=== PATIENT | male | born 1955 | race Caucasian/White ===

== ENCOUNTER 2017-12-01 14:45 | Inpatient (IN) | payer OTHER, MEDICARE ==
[~2017-12-01] VITALS: Ht 182.9 cm; Wt 89.5 kg
--- NOTE | 2017-12-01 14:55 | ED GENERAL ADULT ---
History of Present Illness General Chief Complaint: General Adult Stated Complaint: BIBA L LOWER EXTREMITY EDEMA Source: patient, old records, EMS Exam Limitations: clinical condition Vital Signs & Intake/Output Vital Signs & Intake/Output Vital Signs Date Time Temp Pulse Resp B/P B/P Pulse O2 O2 Flow FiO2 Mean Ox Delivery Rate 12/01 1857 114 18 100/50 12/01 1831 99.3 104 18 100/50 97 Room Air 12/01 1713 100.7 12/01 1713 100.7 12/01 1634 102.7 12/01 1633 102.7 84 18 124/74 97 Room Air 12/01 1456 96 Room Air 12/01 1452 99.1 86 18 143/65 96 Room Air Allergies Coded Allergies: No Known Allergies (12/01/17) Triage Note: PT BIBA FROM [facility] C/C SOB X 1 DAY. POOR HISTORIAN. PT NOTED TO HAVE WOUND VAC TO LLE, STATES HAD BYPASS IN AUGUST. LLE RED, SWOLLEN AND WARM TO TOUCH. ORAL TEMP 99.1. AOX2, PERSON AND LOCATION. DROWSY. Triage Nurses Notes Reviewed? yes Onset: Abrupt Duration: day(s):, constant Timing: recent history Injury Environment: home Severity: moderate, severe Severity Numbers: 9 No Modifying Factors: none Associated Symptoms: DENIES HPI: 61-year-old male with history of COPD smoker CHF recent right lower extremity [facility] presents from a [facility] today complaining of generalized malaise. On arrival the patient is lethargic and is a poor historian. On exam he is noted to have a swollen red and warm right lower extremity. Patient has a wound VAC in place. [facility] which she states the swelling and pain is new. He denies fevers but reports chills. He also reports intermittent shortness of breath no chest pain abdominal pain nausea vomiting diarrhea. He denies any alcohol use. (Brant Singleton) Past History Travel History Traveled to [place] past 21 day No Medical History Any Pertinent Medical History? see below for history Cardiovascular: CHF, hypertension, hyperlipidemia Respiratory: COPD Surgical History Surgical History: RLE BYPASS SEP 12 Psychosocial History What is your primary language Greenlandic Tobacco Use: Quit <30 days ago Family History Hx Contributory? No (Brant Singleton) Review of Systems Review of Systems Constitutional: Reports: see HPI. Comments Review of systems: See HPI, All other systems negative. Constitutional, chills no fever, HEENT: no sore throat no congestion, no ear pain Cardiovascular: No chest pain , no palpitation Skin: SEE HPI Respiratory: dyspnea no cough no sputum no hemoptysis GI: No nausea no vomiting, no diarrhea, no bloating/constipation : No dysuria Muscle skeletal: No joint pain, no back pain Neurologic: , no headache Heme/endocrine: No bruising Immunology: No lymphadenopathy (Brant Singleton) Physical Exam Physical Exam General Appearance: well developed/nourished, lethargic Comments: Well-developed well-nourished person in no acute distress HEENT: Normal EENT exam; PERRL, EOMI, HEAD is atraumatic. moist mucous membranes. Neck: Supple normal range of motion Back: Full range of motion Cardiovascular: Regular rate and rhythms no murmurS rubs or gallops, normal JVP Respiratory: . No respiratory distress. Patient speaking in full complete sentences. Breath sounds clear to auscultation bilaterally: NO W/R/R Abdomen: Soft, nontender nondistended, no appreciable organomegaly. Normal bowel sounds. No rebound/guarding, No ascites. Extremity: Right lower extremity has significant 4+ pitting edema with erythema and significant warmth over the right lower narvaez, there is a wound VAC in place to the medial right thigh, full range of motion of extremities, normal and equal pulses bilaterally, 5 out of 5 strength noted to bilateral upper and lower extremities Neuro: Alert oriented x2, motor sensory normal, There were no obvious focal neurologic abnormalities. Skin: No appreciable rash on exposed skin, skin is warm and dry. Psych: Mood and affect is normal, memory and judgment is normal. Core Measures ACS in differential dx? Yes CVA/TIA Diagnosis: No Sepsis Present: No Sepsis Focused Exam Completed? No (Brant Singleton) Progress Differential Diagnoses I considered the following diagnoses in my evaluation of the patient: [ Cellulitis, sepsis, electrolyte abnormality, CHF, pneumonia, pulmonary embolism Plan of Care: Orders Procedure Date/time Status Heart Healthy Diet 12/02 B Active CBC WITHOUT DIFFERENTIAL 12/02 599 Active BASIC ELECTROLYTES PLUS BUN&CR 12/02 599 Active STREP PNEUMO URINARY ANTIGEN 12/02 1819 Active LEGIONELLA URINARY ANTIGEN 12/02 1819 Active LOWER RESPIRATORY CULTURE 04/08 1820 Active Pathway - chart 12/01 1819 Active Code Status 12/01 1817 Active LACTIC ACID 12/01 1754 Complete Precautions 12/01 1736 Active Patient Data 12/01 1633 Active ED Holding Orders 12/01 1630 Active Admit to inpatient 12/01 1630 Active Vital Signs 12/01 1630 Active Code Status 12/01 1630 Complete Intake & Output 12/01 1458 Active EKG 12/01 1455 Active BLOOD CULTURE 12/01 1454 Active URINE DRUG SCREEN FOR ER ONLY 12/01 1454 Active TROPONIN LEVEL 12/01 1454 Complete LACTIC ACID 12/01 1454 Complete ETHANOL 12/01 1454 Complete WESTERGREN SED RATE 12/01 1454 Complete COMPREHENSIVE METABOLIC PANEL 12/01 1454 Complete CBC WITHOUT DIFFERENTIAL 12/01 1454 Complete B-TYPE NATRIURETIC PEP (BNP) 12/01 1454 Complete ARTERIAL BLOOD GAS (GEN) 12/01 UNK Active Wound Care/Dressing 12/01 UNK Active VTE Mechanical Prophylaxis 12/01 UNK Active Current Medications Sig/Rebel Start time Last Medication Dose Stop Time Status Admin Atorvastatin Calcium 10 MG 1700 12/02 1700 AC (Lipitor) Aspirin 81 MG DAILY 12/02 1000 AC (Aspirin) Citalopram 40 MG DAILY 12/02 1000 AC Hydrobromide (Celexa) Clonazepam 0.5 MG DAILY 12/02 1000 AC (KlonoPIN) 12/09 0959 Ampicillin Sodium/ 3,000 MG Q6H 12/01 2230 AC Sulbactam Sodium (Unasyn) Sodium Chloride 100 ML (Normal Saline 0.9%) Acetaminophen 650 MG AT BEDTIME 12/01 2200 AC (Tylenol) Heparin Sodium 5,000 UNIT Q8 12/01 2200 AC (Porcine) Risperidone 2 MG AT BEDTIME 12/01 2200 AC (Risperidone) Trazodone HCl 100 MG AT BEDTIME 12/01 2200 AC (Desyrel) Senna/Docusate Sodium 2 TAB DAILY PRN 12/01 1845 AC (Senokot S) Metoprolol Tartrate 50 MG DAILY 12/01 183 UNVr 12/01 (Lopressor) 1857 Tamsulosin HCl 0.4 MG DAILY 12/01 1839 AC (Flomax) Nicotine 21 MG DAILY 12/01 183 AC 12/01 (Nicoderm) 1857 Laboratory Tests 12/01/17 1718: Lactic Acid 1.1 12/01/17 1522: Anion Gap 14, Estimated GFR > 60, BUN/Creatinine Ratio 19.0, Glucose 134 H, Lactic Acid 2.4 H, Calcium 8.4, Total Bilirubin 0.6, AST 17, ALT 19 L, Alkaline Phosphatase 70, Troponin I 0.01, Vfb-[id number]-Rcjrssolsgj Pept 4670 H, Total Protein 6.1 L, Albumin 3.3 L, Globulin 2.8, Albumin/Globulin Ratio 1.2, CBC w Diff NO MAN DIFF REQ, RBC 4.43 L, MCV 90.2, MCH 30.0, MCHC 33.3, RDW 14.3, MPV 7.9, Gran % 94.1 H, Lymphocytes % 2.3 L, Monocytes % 3.5, Eosinophils % 0, Basophils % 0.1, Absolute Granulocytes 14.1 H, Absolute Lymphocytes 0.3 L, Absolute Monocytes 0.5, Absolute Eosinophils 0, Absolute Basophils 0, ESR Westergren 23 H, Serum Alcohol < 10.0 Microbiology 12/02 1819 URINE ROUT: Legionella Antigen - ORD 12/02 1819 URINE ROUT: Streptococcus pneumoniae Antigen (M - ORD 12/01 182 LOWER RESP: Respiratory Culture - ORD 12/01 182 LOWER RESP: Gram Stain - ORD 12/01 1528 BLOOD: Blood Culture - RECD 12/01 152 BLOOD: Blood Culture - RECD labs ordered, old records reviewed 12/01/2017 4:13:02 PM Gentle hydration ordered given patient's presentation shortness of breath and mild interstitial edema on x-ray. Unasyn 3 g ordered. I discussed the multiple flaps today pending ultrasound 1600 case d/w dr hinton agrees with plan, d/w dr antwon meraz dmit Diagnostic Imaging: Viewed by Me: Radiology Read, Ultrasound. Discussed w/RAD: Radiology Read, Ultrasound. Radiology Impression: PATIENT: SANDRA IZAGUIRRE PRESENT AGE: 61 PATIENT ACCOUNT NO: [id number] : 56 LOCATION: [facility] ORDERING PHYSICIAN: Brant MIGUEL SERVICE DATE: 12/01/17-1700 EXAM TYPE: RAD - XRY- PORTABLE CHEST XRAY EXAMINATION: XR PORTABLE CHEST CLINICAL INFORMATION: Weakness and leg swelling. Shortness of breath. COMPARISON: None TECHNIQUE: 2 portable frontal views of the chest were obtained. FINDINGS: There is mild prominence of the background interstitium which is nonspecific. There is no dense consolidation or alveolar edema. There is no pneumothorax. The cardiomediastinal silhouette appears normal. There are mild degenerative changes at the right acromioclavicular joint. IMPRESSION: Mild prominence of the background interstitium which could reflect interstitial edema. No dense consolidation. DICTATED BY: Peg Rueda MD DATE/TIME DICTATED:12/01/171555 SULFONATOR OPERATOR:RICH DATE/TIME TRANSCRIBED:12/01/171555 CONFIDENTIAL, DO NOT COPY WITHOUT APPROPRIATE AUTHORIZATION. <Electronically signed in Other Vendor System> SIGNED BY: Peg Rueda MD 12/01/17 1601, PATIENT: SANDRA IZAGUIRRE PRESENT AGE: 61 PATIENT ACCOUNT NO: [id number] : 56 LOCATION: [facility] ORDERING PHYSICIAN: Brant MIGUEL SERVICE DATE: 12/01/17 EXAM TYPE: US - US-UNILATERAL VENOUS DOPPLER EXAMINATION: DOPPLER VENOUS ULTRASOUND EXTREMITY, LEFT CLINICAL INFORMATION: Left lower extremity swelling and redness. COMPARISON: None. TECHNIQUE: Grayscale, Doppler and spectral analysis of the lower extremity was performed. FINDINGS: There is no evidence for a deep venous thrombosis within the visualized lower extremity veins. There is normal flow and compression. The popliteal vein was difficult to visualize due to a wound VAC which is attached to the medial aspect of the left knee. No Puri's cyst is identified. IMPRESSION : No evidence of DVT in the left lower extremity. DICTATED BY: Peg Rueda MD DATE/TIME DICTATED:12/01/171607 SULFONATOR OPERATOR:RICH DATE/TIME TRANSCRIBED:12/01/171607 CONFIDENTIAL, DO NOT COPY WITHOUT APPROPRIATE AUTHORIZATION. <Electronically signed in Other Vendor System> SIGNED BY: Peg Rueda MD 12/01/17 1614 Initial ED EKG: normal intervals, normal p-waves, normal QRS complex, normal sinus rhythm Rhythm Strip: normal sinus rhythm (Brant Singleton) ED Sepsis Exam Date of Focused Sepsis Exam: 12/01/17 Time of Focused Sepsis Exam: 1630 Sepsis Cardiac Exam: Regular Rate/Rhythm Sepsis Resp Exam: CTA Sepsis Cap Refill Exam: <2 Sec Sepsis Peripheral Pulse Exam: Normal Sepsis Peripheral Pulse Location: Dorsalis Pedis Sepsis Skin Color Exam: Normal for Ethnicity Skin Temp/Moisture Exam: Warm/Dry (Brant Singleton) Departure Departure Time of Disposition: 1628 Disposition: STILL A PATIENT Condition: Stable Clinical Impression Primary Impression: Cellulitis Departure Forms: Customer Survey General Discharge Information Admission Note Spoke With: Antwon PECK,Shravan Documentation of Exam: Documentation of any treatments & extenuating circumstances including Concerns Regarding Discharge (functional status, medication knowledge or non-compliance, living conditions, etc.) that warrant an admission rather than observation: IV ABX, TREND LABS, ID/WOUND CARE CONSULT, TREND CULTURES, PREMATURE DISCHARGE WOULD BE MEDICALLY HARMFUL (Brant Singleton) Admission Note Documentation of Exam: Documentation of any treatments & extenuating circumstances including Concerns Regarding Discharge (functional status, medication knowledge or non-compliance, living conditions, etc.) that warrant an admission rather than observation: PA/POWER ELECTRONICS ENGINEER Co-Sign Statement Statement: ED Attending supervision documentation- [X] I saw and evaluated the patient. I have also reviewed all the pertinent lab results and diagnostic results. I agree with the findings and the plan of care as documented in the PA's/POWER ELECTRONICS ENGINEER's documentation. [X] I have reviewed the ED Record and agree with the PA's/POWER ELECTRONICS ENGINEER's documentation. [] Additions or exceptions (if any) to the PAs/POWER ELECTRONICS ENGINEER's note and plan are summarized below: [Patient being admitted for cellulitis with leukocytosis. Patient had recent bypass. ID consult] (Clive PECK,Tani Santos) Critical Care Note Critical Care Note Critical Care Time: non-applicable (Brant Singleton)
[2017-12-01 15:35] LABS: ABSOLUTE BASOPHIL COUNT 0 /CUMM (0.0-0.2); ABSOLUTE EOSINOPHIL COUNT 0 /CUMM (0.0-0.7); ABSOLUTE GRANULOCYTE CT 14.1 /CUMM (1.4-6.5); ABSOLUTE LYMPH COUNT 0.3 /CUMM (1.2-3.4); ABSOLUTE MONOCYTE COUNT 0.5 /CUMM (0.10-0.60); BASOPHIL % 0.1 % (0.0-2.0); EOSINOPHIL % 0 % (0-5); HEMATOCRIT 39.9 % (42-52); MEAN CORPUSCULAR HGB CONC 33.3 G/DL (33.0-37.0); MEAN CORPUSCULAR VOLUME 90.2 FL (80.0-94.0); MEAN PLATELET VOLUME 7.9 FL (7.4-10.4); PLATELET COUNT 181 /CUMM (130-400); RBC DISTRIBUTION WIDTH 14.3 % (11.5-14.5); RED BLOOD CELL CT 4.43 /CUMM (4.70-6.10)
--- NOTE | 2017-12-01 16:01 | RADIOLOGY REPORT ---
EXAMINATION: XR PORTABLE CHEST CLINICAL INFORMATION: Weakness and leg swelling. Shortness of breath. COMPARISON: None TECHNIQUE: 2 portable frontal views of the chest were obtained. FINDINGS: There is mild prominence of the background interstitium which is nonspecific. There is no dense consolidation or alveolar edema. There is no pneumothorax. The cardiomediastinal silhouette appears normal. There are mild degenerative changes at the right acromioclavicular joint. IMPRESSION: Mild prominence of the background interstitium which could reflect interstitial edema. No dense consolidation.
[2017-12-01 16:07] LABS: GRANULOCYTE % 94.1 % (42.2-75.2)
--- NOTE | 2017-12-01 16:14 | ULTRASOUND REPORT ---
EXAMINATION: DOPPLER VENOUS ULTRASOUND EXTREMITY, LEFT CLINICAL INFORMATION: Left lower extremity swelling and redness. COMPARISON: None. TECHNIQUE: Grayscale, Doppler and spectral analysis of the lower extremity was performed. FINDINGS: There is no evidence for a deep venous thrombosis within the visualized lower extremity veins. There is normal flow and compression. The popliteal vein was difficult to visualize due to a wound VAC which is attached to the medial aspect of the left knee. No Puri's cyst is identified. IMPRESSION: No evidence of DVT in the left lower extremity.
--- NOTE | 2017-12-01 17:29 | History & Physical ---
[facility] 12/01/17 1723: General Information and HPI MD Statement: I have seen and personally examined SANDRA IZAGUIRRE and documented this H&P. The patient is a 61 year old M who presented with a patient stated chief complaint of shortness of breath for 1 day with left leg swelling and redness for couple of weeks. []. Source of Information: patient, EMS Exam Limitations: no limitations History of Present Illness: 61 YO M smoker with PMH of HTN, HLD, COPD not on home o2, CHF and left leg bypass on aug 2017 [facility] with chief complain of shortness of breath for 1 day with left leg swelling and redness for last couple of weeks. Patient reported that he was in his usual state of health one day back when he noticed having shortness of breath and he was feeling generalized weakness. Patient reported having exertional dyspnea that's progressively worsening. Patient also reported that he has left leg swelling and redness that 's going on for last couple of weeks. According to patient his left leg redness has increased progressively. Patient reported that he got wound vac from [facility] 2 weeks back and he had left leg bypass at [facility] in August 2017. Patient reported pain in left leg especially around the wound VAC site 04/04, continuous, sharp and radiating to the leg. Patient is post to see vascular surgeon in a week. Patient also reported that he is seeing appointment clerk at [facility]. Patient living at [facility] get his wound care was done by the nursing staff. Patient denied any chest pain, palpitation, chills, fever, diarrhea, abdominal pain, constipation, lightheadedness, sick contact, cough, sputum and dysuria. ED course: Vitals: Temperature 102.7, pulse 84, respiratory rate 18, blood pressure 124/74, oxygen saturation 97% on room air. Labs: WBC count 15.0, hemoglobin 13.3, hematocrit 39.9, platelet count 181, sodium 135, potassium 3.6, BUN 19, creatinine 1.0, lactic acid 2.4, glucose 134, BUNs/creatinine ratio 19.0, AST 70, ALT 19, troponin 0.01, proBNP 4670 Blood cultures were obtained in ED Patient received one dose of Unasyn and 1 bolus of normal saline. Allergies/Medications Allergies: Coded Allergies: No Known Allergies (12/01/17) Past History Travel History Traveled to [place] past 21 day No Medical History Cardiovascular: CHF, hypertension, hyperlipidemia Respiratory: COPD Surgical History Surgical History: RLE BYPASS SEP 12 Review of Systems Review of Systems Constitutional: Reports: weakness. Denies: chills, fever. EENTM: Reports: no symptoms. Cardiovascular: Denies: chest pain, palpitations. Respiratory: Reports: short of breath. Denies: cough, sputum production. GI: Reports: no symptoms. Genitourinary: Reports: no symptoms. Musculoskeletal: Reports: see HPI. Skin: Reports: see HPI. Neurological/Psychological: Reports: no symptoms. Exam & Diagnostic Data Last 24 Hrs of Vital Signs/I&O Vital Signs Date Time Temp Pulse Resp B/P B/P Pulse O2 O2 Flow FiO2 Mean Ox Delivery Rate 12/01 1713 100.7 12/01 1713 100.7 12/01 1634 102.7 12/01 1633 102.7 84 18 124/74 97 Room Air 12/01 1456 96 Room Air 12/01 1452 99.1 86 18 143/65 96 Room Air Intake & Output 12/01 1600 12/01 0800 12/01 0000 Intake Total Output Total Balance Patient 225 lb Weight Weight Estimated Measurement Method Physical Exam General Appearance Alert, Oriented X3, Cooperative Skin Temp/Moisture Exam: Warm/Dry Sepsis Skin Exam (color): Normal for Ethnicity HEENT Atraumatic, PERRLA, EOMI Neck Supple Cardiovascular Normal S1, Normal S2 Lungs Decreased breath sounds b/l Abdomen Soft, No Tenderness Neurological Normal Speech, Strength at 5/5 X4 Ext, Normal Tone Extremities Left leg swelling and redness with warmth compare to right, Right leg venous changes. Last 24 Hrs of Labs/Manuel: Laboratory Tests 12/01/17 1522: Anion Gap 14, Estimated GFR > 60, BUN/Creatinine Ratio 19.0, Glucose 134 H, Lactic Acid 2.4 H, Calcium 8.4, Total Bilirubin 0.6, AST 17, ALT 19 L, Alkaline Phosphatase 70, Troponin I 0.01, [id number]-Z-Aozyxrnfggt Pept 4670 H, Total Protein 6.1 L, Albumin 3.3 L, Globulin 2.8, Albumin/Globulin Ratio 1.2, CBC w Diff NO MAN DIFF REQ, RBC 4.43 L, MCV 90.2, MCH 30.0, MCHC 33.3, RDW 14.3, MPV 7.9, Gran % 94.1 H, Lymphocytes % 2.3 L, Monocytes % 3.5, Eosinophils % 0, Basophils % 0.1, Absolute Granulocytes 14.1 H, Absolute Lymphocytes 0.3 L, Absolute Monocytes 0.5, Absolute Eosinophils 0, Absolute Basophils 0, ESR Westergren 23 H, Serum Alcohol < 10.0 Microbiology 12/01 152 BLOOD: Blood Culture - RECD 12/01 152 BLOOD: Blood Culture - RECD Assessment/Plan Assessment: 61 YO M smoker with PMH of HTN, HLD, COPD not on home o2, CHF and left leg bypass on aug 2017 [facility] with chief complain of shortness of breath for 1 day with left leg swelling and redness for last couple of weeks. We will keep the patient on telemetry floor following problems; Sepsis probably due to left leg cellulitis: -Patient having 2 out of 4 SIRS criteria, temperature 102.7, WBC count 15.0 and source of infection probably left leg cellulitis. Patient lactic acid on admission was 2.4 -Continue IV Unasyn -Tender lactic acid -Gentle IV hydration -We will follow blood cultures -Leg elevation -Wound consult in a.m. -ID consult in a.m. Interstitial edema: -Less likely CHF but chest x-ray showed possible interstitial edema. -We'll get record from [facility] in a.m. -IV Lasix hold for now, Reassess to start it.or if patient develops hypoxia. -Daily weight -Input and output monitoring. History of hypertension and hyperlipidemia: -Continue home medications History of COPD: -Continue home medication -TRC nebulization as needed DVT prophylaxis: -Mechanical and subcutaneous heparin CODE STATUS: DNR/DNI As Ranked By This Provider Problem List: 1. Cellulitis 2. Sepsis Core Measures/Misc (05/12) Acute Coronary Syndrome ACS Diagnosis: No Congestive Heart Failure Congestive Heart Failure Diagnosis No Cerebrovascular Accident CVA/TIA Diagnosis: No VTE (View Protocol) VTE Risk Factors Age>40 No Mechanical VTE Prophylaxis d/t N/A MechProphylax Ordered No VTE Pharm Prophylaxis d/t NA PharmProphylax ordered Sepsis (View protocol) Sepsis Present: Yes Vilma Catherine 12/01/17 1804: Resident Review Statement Other Findings: Patient is 61 years old male, current smoker, came with PMh of CHF, HTN, HLD, COPD, RLE bypass Aug 2017, came with a chief complain of difficulty [facility]. Patient states that today he wasn't feeling well and had difficulty breathing. he denies any present shortness of breath. Patient denies any cough or nasal congestion. However he complains of generalized weakness and maliase. Patient appeared very lethargic on the encounter. Patient was admittedto [facility] in Aug [facility], for left lower extremety bypass and has a wound vac in place withs ero angious discharge. Patient also reports of subjective feavers. Patient reports that his left lower extremety stays warm and red since his discharge. Currently he denies any pain in his left lower leg. There is no open area other than the site of wound vac attachment. Labs and Vitals as km Imaging done in ER: Mild prominence of the background interstitium which could reflect interstitial edema. No dense consolidation. No evidence of DVT in the left lower extremity. Assessment and plan: will admit the patient to telemetry fllor to rule out possible CHF as there is evidence of interstitial edema. Will continue unasyn for left lower extremety cellulitis left lower extremety elevation. wound consult in am DVT ppx: SQ heprin Patient is DNR/DNI Antwon PECK,Shravan 12/01/17 2106: Attending MD Review Statement Attending Statement Attending MD Statement: examined this patient, discuss w/resident/PA/EL TEACHER, agreed w/resident/PA/EL TEACHER, reviewed EMR data (avail) Attending Assessment/Plan: Patient seen and examined in the emergency room. Plan of care discussed with the medical team and the patient. Available lab work and radiology test reports were reviewed. This is a 61 YO M smoker with PMH of HTN, HLD, COPD not on home o2, CHF and left leg bypass on aug 2017 [facility] with chief complain of left leg redness swelling, lethargy and generalized weakness. In addition he also complained of mild difficulty breathing. Patient currently has a chronic the left the leg wound in lower medial thigh with a wound VAC applied after a vascular surgery. Patient's febrile MAXIMUM TEMPERATURE of 102.7 and he was tachycardic in the emergency room. His low-dose BP recorded was 100/50. Room air saturation 96%. Left leg show signs of extensive cellulitis extending the entire length of left leg with marked erythema and warmth and the edema. His WBC count was 15 the left shift and his lactic acid was 2.4 and repeat lactic acid was 1.1. ProBNP was 4670 and a chest x-ray has shown possible interstitial edema. Been stopped was negative for any DVT . Patient being admitted for left leg cellulitis. [facility]. Continue monitor oxygenation and patient develops hypoxia patient can be given Lasix. patient can be given Lasix. Patient being admitted for left leg cellulitis. [facility] Elevate left leg. Continue monitor oxygenation and patient develops hypoxia patient can be given Lasix.
--- NOTE | 2017-12-01 21:06 | Admission Certification ---
Admission Certification Certification Statement - As attending physician, I certify that at the time of - admission, based on clinical presentation, severity of - symptoms, need for further diagnostic testing and - therapeutic interventions, and risk of adverse outcomes - without in-hospital treatment, in my clinical assessment, - this patient requires an acute hospital stay for a minimum - of two nights or longer. I have also considered psychsocial - factors such as support system, advanced age, financial - issues, cognitive issues, and failed out-patient treatments, - past re-admission history, safety of patient, and lack of - compliance as applicable. Specific rationale supporting this admission is: Left leg cellulitis and chronic wound
[2017-12-02 06:10] LABS: ABSOLUTE BASOPHIL COUNT 0 /CUMM (0.0-0.2); ABSOLUTE EOSINOPHIL COUNT 0 /CUMM (0.0-0.7); ABSOLUTE GRANULOCYTE CT 10.7 /CUMM (1.4-6.5); ABSOLUTE LYMPH COUNT 0.4 /CUMM (1.2-3.4); ABSOLUTE MONOCYTE COUNT 0.6 /CUMM (0.10-0.60); BASOPHIL % 0 % (0.0-2.0); EOSINOPHIL % 0 % (0-5); GRANULOCYTE % 91.3 % (42.2-75.2); HEMATOCRIT 37.2 % (42-52); MEAN CORPUSCULAR HGB 30.8 PG (27.0-31.0); MEAN CORPUSCULAR HGB CONC 34.2 G/DL (33.0-37.0); MEAN CORPUSCULAR VOLUME 90.2 FL (80.0-94.0); MEAN PLATELET VOLUME 8.1 FL (7.4-10.4); PLATELET COUNT 159 /CUMM (130-400); RBC DISTRIBUTION WIDTH 14.5 % (11.5-14.5); RED BLOOD CELL CT 4.12 /CUMM (4.70-6.10); WHITE BLOOD CELL COUNT 11.8 /CUMM (4.8-10.8)
--- NOTE | 2017-12-02 07:09 | PN- Housestaff ---
[facility]708: Subjective Follow-up For: Sepsis due to left leg cellulitis MAT Tele-Events Since Last Visit: Patient remaining possible multifocal atrial tachycardia. Subjective: Patient was febrile last night. His max temperature was 101.4. Patient denied any chest pain, palpitation, nausea, vomiting, abdominal pain and dysuria. Patient reported having exertional dyspnea. Review of Systems Constitutional: Reports: fever. EENTM: Reports: no symptoms. Cardiovascular: Denies: chest pain, orthopena, palpitations. Respiratory: Denies: cough, sputum production. Gastrointestinal: Reports: no symptoms. Genitourinary: Reports: no symptoms. Musculoskeletal: Reports: no symptoms. Neurological/Psychological: Reports: no symptoms. Objective Last 24 Hrs of Vital Signs/I&O Vital Signs Date Time Temp Pulse Resp B/P B/P Pulse O2 O2 Flow FiO2 Mean Ox Delivery Rate 12/03 903 100.6 12/03 903 100.6 116 16 95 Room Air 12/02 0851 101.4 143 16 98/55 94 Room Air 12/02 0758 101.4 143 18 98/55 94 Room Air 12/02 0606 94 Room Air Room Air 12/02 0555 98.8 133 20 123/55 98 Room Air 12/02 0358 100.1 118 16 99/65 97 Room Air Room Air 12/02 0229 100.4 142 18 100/58 12/02 0149 100.4 108 18 100/58 96 Room Air 12/01 2150 97.3 92 18 131/72 97 Room Air 12/01 2012 101 18 115/78 12/01 2012 97.7 101 18 115/78 96 Room Air 12/01 1857 114 18 100/50 12/01 1831 99.3 104 18 100/50 97 Room Air 12/01 1713 100.7 12/01 1713 100.7 12/01 1634 102.7 12/01 1633 102.7 84 18 124/74 97 Room Air 12/01 1456 96 Room Air 12/01 1452 99.1 86 18 143/65 96 Room Air Intake & Output 12/02 1600 12/02 0800 12/02 0000 Intake Total 240 Output Total 1000 Balance -760 Intake, Oral 240 Output, Urine 1000 Patient 225 lb Weight Weight Reported by Patient Measurement Method Physical Exam General Appearance: Alert, Oriented X3, Cooperative Skin: No Rashes Skin Temp/Moisture Exam: Warm/Dry Sepsis Skin Exam (color): Normal for Ethnicity HEENT: Atraumatic, PERRLA, EOMI Neck: Supple Cardiovascular: Normal S1, Normal S2 Lungs: Clear to Auscultation Abdomen: Soft, No Tenderness Neurological: Normal Speech, Strength at 5/5 X4 Ext, Normal Tone Extremities: Left leg swelling and reness with warmth compare to right leg Assessment/Plan Assessment: 61 YO M smoker with PMH of HTN, HLD, COPD not on home o2, CHF and left leg bypass on aug 2017 came [facility] ED [facility] the [facility] with chief complain of shortness of breath for 1 day with left leg swelling and redness for last couple of weeks. We will keep the patient on telemetry floor following problems; Sepsis probably due to left leg cellulitis: -Patient having 2 out of 4 SIRS criteria, temperature 102.7, WBC count 15.0 and source of infection probably left leg cellulitis. Patient lactic acid on admission was 2.4 -Continue IV Unasyn day 2 -Repeat lactic acid 1.1 -We will follow blood cultures -Leg elevation -Wound consult Interstitial edema: -Less likely CHF but chest x-ray showed possible interstitial edema. -We'll get record from [facility] in a.m. -Daily weight -Input and output monitoring. -Patient has irregular rhythm possibly due to MAT and tachycardia History of hypertension and hyperlipidemia: -Continue home medications History of COPD: -Continue home medication -TRC nebulization as needed Smoking cessation: -Nicotine patch DVT prophylaxis: -Mechanical and subcutaneous heparin CODE STATUS: DNR/DNI Problem List: 1. Sepsis 2. Cellulitis Pain Ratin Pain Location: NONE Pain Goal: Remain pain free Pain Plan: PAIN PATHWAY Tomorrow's Labs & Rationales: CBC/BEP Antwon PECK,Shravan 12/02/17 1113: Attending MD Review Statement Attending Statement Attending MD Statement: examined this patient, discuss w/resident/PA/ADMINISTRATIVE JUDGE, agreed w/resident/PA/ADMINISTRATIVE JUDGE, reviewed EMR data (avail) Attending Assessment/Plan: Patient was seen and examined with the medical team in the emergency room. Patient is somewhat more awake today and more alert. He denies any pain and denies any fever although he was noted to have MAXIMUM TEMPERATURE of 101.4. The noted to have tachycardia with Mech stage I 43/m. Lowest BP was 98/55. A repeat BP check is 08/27/1953. Saturation 95% on room air. Left leg shows decreased edema and redness. Bone back has been taken off. Chest is clear. Abdomen soft obese nontender. His MRSA count has decreased to 11.8 and his chemistry labs are within normal limits today. Cultures are currently pending. Assessment plan * Left leg cellulitis- improving on Unasyn. Plan is to continue Unasyn. Elevate left leg * Chronic wound post surgery left thigh- wound care consult, [facility] * Mild congestive heart failure- unclear about etiology of heart failure * Tachycardia, likely MAT- continue telemetry observation, increased Toprol dose to 75 mg daily; check 2 more sets of troponin; obtained old records from [place]
[2017-12-02] MEDS ORDERED: ASPIRIN81 M4 PO (08:14)
[2017-12-02] MEDS ORDERED: TYLENOL325 M1 PO (08:14)
[2017-12-02] MEDS ORDERED: CLONAZEPAM0.5 M2 PO (08:15)
[2017-12-02] MEDS ORDERED: ATORVASTATIN CA10 M1 PO (08:15)
[2017-12-02] MEDS ORDERED: CELEXA40 M1 PO (08:15)
[2017-12-02] MEDS ORDERED: RISPERDAL2 M1 PO (08:16)
[2017-12-02] MEDS ORDERED: TOPROL XL50 M1 PO (08:16)
[2017-12-02] MEDS ORDERED: FLOMAX0.4 M1 PO (08:16)
[2017-12-02] MEDS ORDERED: TRAZODONE HCL100 M1 PO (08:17)
[2017-12-02 08:51] VITALS: BP 98/55
[2017-12-02 17:36] VITALS: BP 114/86
[2017-12-02 22:51] VITALS: BP 122/78
[2017-12-03 06:51] VITALS: BP 130/88
--- NOTE | 2017-12-03 07:49 | PN- Housestaff ---
[facility] 0743: Subjective Follow-up For: Sepsis due to left leg cellulitis MAT Tele-Events Since Last Visit: Irregular rhythm with heart rate between [address]183 Subjective: No overnight event. Patient remained afebrile Betapace seen and examined this morning. He denied any chest pain, short of breath, nausea, vomiting, chills, fever, abdominal pain dysuria. He was complaining of left leg discomfort. Review of Systems Constitutional: Denies: chills, fever, weakness. EENTM: Reports: no symptoms. Cardiovascular: Denies: chest pain, palpitations. Respiratory: Denies: cough, short of breath, sputum production. Gastrointestinal: Denies: abdominal pain, constipation, nausea. Genitourinary: Reports: no symptoms. Musculoskeletal: Reports: no symptoms. Neurological/Psychological: Reports: no symptoms. Objective Last 24 Hrs of Vital Signs/I&O Vital Signs Date Time Temp Pulse Resp B/P B/P Pulse O2 O2 Flow FiO2 Mean Ox Delivery Rate 12/03 0651 98.4 108 20 130/88 95 Room Air 12/02 2251 97.8 98 18 122/78 93 Room Air 12/02 1736 98.4 100 18 114/86 95 Room Air 12/02 1424 97.7 81 18 102/67 98 Room Air 12/02 1245 95 Room Air 12/02 0944 100.3 112 16 102/55 12/02 0944 100.3 112 16 102/55 12/02 0943 100.3 12/02 0943 100.3 112 16 102/55 95 Room Air 12/02 0904 100.6 12/02 0904 100.6 116 16 95 Room Air 12/02 0851 101.4 143 16 98/55 94 Room Air 12/02 0758 101.4 143 18 98/55 94 Room Air Intake & Output 12/03 0800 12/03 0000 12/02 1600 Intake Total 1140 320 Output Total 600 Balance 1140 320 -600 Intake, IV 900 Intake, Oral 240 320 Number 1 Bowel Movements Output, Urine 600 Patient 195 lb 225 lb Weight Weight Bed scale Reported by Patient Measurement Method Physical Exam General Appearance: Alert, Oriented X3, Cooperative Skin: No Rashes Skin Temp/Moisture Exam: Warm/Dry Sepsis Skin Exam (color): Normal for Ethnicity HEENT: Atraumatic, PERRLA, EOMI Neck: Supple Cardiovascular: Normal S1, Normal S2 Lungs: Clear to Auscultation Abdomen: Soft, No Tenderness Neurological: Normal Speech, Strength at 5/5 X4 Ext, Normal Tone Extremities: left leg swelling and redness with wound on medial side of knee Assessment/Plan Assessment: 61 YO M smoker with PMH of HTN, HLD, COPD not on home o2, CHF and left leg bypass on aug 2017 [facility] homeless [facility] with chief complain of shortness of breath for 1 day with left leg swelling and redness for last couple of weeks. We will keep the patient on telemetry floor following problems; Sepsis probably due to left leg cellulitis: -Sepsis has been resolved. -Continue IV Unasyn day 3 -Vancomycin 1500mg bid day 1, H/O MRSA. Vancomycin was stopped as recommended by Dr. Fountain, as patient doesn't have purulent cellulitis. -We will follow blood cultures -Leg elevation -patient has wound on medial side of left knee. -Wound consult Interstitial edema: -Less likely CHF but chest x-ray showed possible interstitial edema. -Daily weight -Input and output monitoring. -Patient has irregular rhythm possibly due to MAT and tachycardia History of hypertension and hyperlipidemia: -Continue home medications History of COPD: -Continue home medication -TRC nebulization as needed Smoking cessation: -Nicotine patch DVT prophylaxis: -Mechanical and subcutaneous heparin CODE STATUS: DNR/DNI Problem List: 1. Sepsis 2. Cellulitis Pain Ratin Pain Location: none Pain Goal: Remain pain free Pain Plan: pain pathway Tomorrow's Labs & Rationales: cbc/bep Mariposa Doshi MD 12/03/17 1105: Attending MD Review Statement Attending Statement Attending MD Statement: examined this patient, discuss w/resident/PA/AUTOMOTIVE ENGINEERING TECHNICIAN, agreed w/resident/PA/AUTOMOTIVE ENGINEERING TECHNICIAN, reviewed EMR data (avail) Attending Assessment/Plan: 61M PMH CHF, HTN, HLD, COPD, LLE bypass Aug 2017 with wound dehisicence and chronic wound requiring wound vac for several months admitted with cellulitis of the LLE with erythema, warmth, swelling, and pain, also found to be in multifocal atrial tachycardia. Overnight Tmax 101.4, tachycardic to 100's and irregular. Leg erythema is unchanged but foot is significantly more swollen, red, and painful. LE doppler negative. 1. LLE cellulitis 2. Multifocal atrial tachycardia 3. PAD Plan - Continue on telemetry - Start Vancomycin, continue Unasyn (patient has a history of mRSA) - Follow cultures - Wound and cardiology consults - Continue home medications - DVT PPx
[2017-12-03 08:01] LABS: ABSOLUTE BASOPHIL COUNT 0 /CUMM (0.0-0.2); ABSOLUTE EOSINOPHIL COUNT 0 /CUMM (0.0-0.7); ABSOLUTE GRANULOCYTE CT 8.2 /CUMM (1.4-6.5); ABSOLUTE LYMPH COUNT 0.8 /CUMM (1.2-3.4); ABSOLUTE MONOCYTE COUNT 0.9 /CUMM (0.10-0.60); BASOPHIL % 0.3 % (0.0-2.0); EOSINOPHIL % 0.3 % (0-5); GRANULOCYTE % 82.5 % (42.2-75.2); HEMATOCRIT 34.4 % (42-52); MEAN CORPUSCULAR HGB 30.8 PG (27.0-31.0); MEAN CORPUSCULAR HGB CONC 34.3 G/DL (33.0-37.0); MEAN CORPUSCULAR VOLUME 89.8 FL (80.0-94.0); MEAN PLATELET VOLUME 8.3 FL (7.4-10.4); PLATELET COUNT 146 /CUMM (130-400); RBC DISTRIBUTION WIDTH 14.6 % (11.5-14.5); RED BLOOD CELL CT 3.83 /CUMM (4.70-6.10); WHITE BLOOD CELL COUNT 9.9 /CUMM (4.8-10.8)
--- NOTE | 2017-12-03 10:43 | Cons- Wound Care ---
General Information and HPI Consulting Request Date of Consult: 12/03/17 Requested By: Mariposa Doshi MD Reason for Consult: Left leg nonhealing surgical wound present on admission acute left leg cellulitis History of Present Illness: Patient is 61-year-old gentleman status post left leg bypass surgery in August suffered wound dehiscence and has been treated with a wound VAC for the past several weeks. He developed acute erythema of his left leg requiring hospitalization in the setting of fever and cellulitis. Status of his distal circulation is unknown. He denies diabetes. He has been a long time smoker Allergies/Medications Allergies: Coded Allergies: No Known Allergies (12/01/17) Home Med List: Acetaminophen (Tylenol) 325 MG TABLET 2 TAB PO QPM PAIN (Reported) Aspirin (Aspirin*) 81 MG TAB.CHEW 1 TAB PO DAILY HEART HEALTH (Reported) Atorvastatin Calcium 10 MG TABLET 1 TAB PO 1700 CHOLESTEROL (Reported) Citalopram Hydrobromide (Celexa) 40 MG TABLET 1 TAB PO DAILY MENTAL HEALTH ( Reported) Clonazepam 0.5 MG TABLET 1 TAB PO DAILY ANXIETY (Reported) Metoprolol Succ XL (Toprol Xl) 50 MG TAB 1 TAB PO DAILY HEART (Reported) Risperidone (Risperdal) 2 MG TABLET 1 TAB PO QPM MENTAL HEALTH (Reported) Tamsulosin HCl (Flomax) 0.4 MG CAP.ER.24H 1 CAP PO DAILY PROSTATE (Reported) Trazodone HCl 100 MG TABLET 1 TAB PO QPM SLEEP (Reported) Review of Systems Review of Systems: Positive for shortness of breath and fever Past History Travel History Traveled to [place] past 21 day No Medical History Cardiovascular: CHF, hypertension, hyperlipidemia Respiratory: COPD Surgical History Surgical History: RLE BYPASS SEP 12 Psychosocial History Where Do You Live? Other Services at Home: Nursing Smoking Status: Former Smoker Exam & Diagnostic Data Vital Signs and I&O Vital Signs Result Date Time B/P 130/88 12/03 846 Pulse 103 12/03 0847 Pulse Ox 95 12/03 650 O2 Delivery Room Air 12/03 650 Temp 98.4 12/03 650 Resp 20 12/03 650 O2 Flow Rate Room Air 12/02 0606 Intake & Output 12/03 0000 12/02 1600 12/02 0800 Intake Total 320 240 Output Total 600 1000 Balance 320 -600 -760 Intake, Oral 320 240 Number 1 Bowel Movements Output, Urine 600 1000 Patient 195 lb 225 lb Weight Weight Bed scale Reported by Patient Measurement Method Physical exam a left leg shows there to be erythema from the lower thigh to the foot with pitting edema distal pulses are unable to palpated there is a 12 x 4 cm nonhealing surgical wound with 100% red fill there is no undermining sinus tracking or exposed bone Assessment/Plan Impression/Plan: 61-year-old gentleman with history of presumed peripheral vascular disease status post left leg bypass suffered wound dehiscence now comp complicated by acute cellulitis. Recommend aggressive leg elevation. Replace wound VAC after cellulitis begins to improve. Antibiotics per primary care team. Patient should have vascular surgery evaluation. Wound care in the interim can be quarter strength Dakin's moistened gauze changed twice daily with wound cleansing Consult Acknowledgment - Thank you for your consult request.
[2017-12-03 14:00] VITALS: BP 104/72
--- NOTE | 2017-12-03 20:08 | Cons- Vascular Surgery ---
General Information and HPI Consulting Request Date of Consult: 12/03/17 Requested By: Mariposa Doshi MD Reason for Consult: LLExt Cellulitis Source of Information: patient Exam Limitations: no limitations History of Present Illness: This is a 61-year-old male with past medical history significant for peripheral vascular disease, COPD, CHF and tobacco abuse who is status post left lower extremity bypass for an aneurysm by the [facility] in August. He developed pain and swelling in the extremity several days ago and has been admitted to the medical service with current therapy for cellulitis. He did have issues postoperatively with wound dehiscence and has been receiving wound care and had a wound VAC up until his hospital stay here at which point he was switched to Dakin's dressing changes. He reports that he always has swelling in the left leg however, it was not painful or red prior to presentation. He denies any other associated issues or complaints. [facility] not [facility] at this time for review. Allergies/Medications Allergies: Coded Allergies: No Known Allergies (12/01/17) Home Med List: Acetaminophen (Tylenol) 325 MG TABLET 2 TAB PO QPM PAIN (Reported) Aspirin (Aspirin*) 81 MG TAB.CHEW 1 TAB PO DAILY HEART HEALTH (Reported) Atorvastatin Calcium 10 MG TABLET 1 TAB PO 1700 CHOLESTEROL (Reported) Citalopram Hydrobromide (Celexa) 40 MG TABLET 1 TAB PO DAILY MENTAL HEALTH ( Reported) Clonazepam 0.5 MG TABLET 1 TAB PO DAILY ANXIETY (Reported) Metoprolol Succ XL (Toprol Xl) 50 MG TAB 1 TAB PO DAILY HEART (Reported) Risperidone (Risperdal) 2 MG TABLET 1 TAB PO QPM MENTAL HEALTH (Reported) Tamsulosin HCl (Flomax) 0.4 MG CAP.ER.24H 1 CAP PO DAILY PROSTATE (Reported) Trazodone HCl 100 MG TABLET 1 TAB PO QPM SLEEP (Reported) Current Medications: Current Medications Sig/Rebel Start time Last Medication Dose Route Stop Time Status Admin Acetaminophen 500 MG Q6P PRN 12/03 1430 AC 12/03 PO 1425 Acetaminophen 650 MG AT BEDTIME PRN 12/03 1414 DC PO Acetaminophen 650 MG AT BEDTIME 12/01 2200 DC 12/02 PO 2104 Ampicillin Sodium/ 3,000 MG Q6H 12/03 0030 AC 12/03 Sulbactam Sodium IV 1843 Sodium Chloride 100 ML Ampicillin Sodium/ 3,000 MG Q6H 12/01 2230 DC 12/02 Sulbactam Sodium IV 1841 Sodium Chloride 100 ML Aspirin 81 MG DAILY 12/02 1000 AC 12/03 PO 0846 Atorvastatin Calcium 10 MG 1700 12/02 1700 AC 12/03 PO 1739 Citalopram 40 MG DAILY 12/02 1000 AC 12/03 Hydrobromide PO 0846 Clonazepam 0.5 MG DAILY 12/02 1000 AC 12/03 PO 12/09 0959 0847 Heparin Sodium 5,000 UNIT Q8 12/01 2200 AC 12/03 (Porcine) SC 1418 Metoprolol Succinate 75 MG DAILY 12/03 1000 AC 12/03 PO 0847 Nicotine 14 MG DAILY 12/02 1157 AC 12/03 TOP 0847 Potassium Chloride 40 MEQ ONCE ONE 12/03 0845 DC 12/03 PO 12/03 0846 0846 Risperidone 2 MG AT BEDTIME 12/01 2200 AC 12/02 PO 2104 Senna/Docusate Sodium 2 TAB DAILY PRN 12/01 1845 AC PO Sodium Chloride 1,000 ML Q10H 12/02 1630 DC 12/02 IV 12/03 0229 1741 Sodium Hypochlorite 1 DYLAN BID 12/03 1147 AC 12/03 TOP 1245 Tamsulosin HCl 0.4 MG DAILY 12/01 1839 AC 12/03 PO 0847 Trazodone HCl 100 MG AT BEDTIME 12/01 2200 AC 12/02 PO 2104 Vancomycin HCl 1,500 MG BID 12/03 1100 CAN IV Vancomycin HCl 1,500 MG Q12H 12/03 1100 DC Sodium Chloride 250 ML IV Past History Medical History Cardiovascular: CHF, hypertension, hyperlipidemia Respiratory: COPD Surgical History Pertinent Surgical History: RLE BYPASS SEP 12 Psychosocial History Where Do You Live? Other Services at Home: Nursing Smoking Status: Former Smoker Review of Systems Review of Systems: as per HPI Exam & Diagnostic Data Vital Signs and I&O Vital Signs Date Time Temp Pulse Resp B/P B/P Pulse O2 O2 Flow FiO2 Mean Ox Delivery Rate 12/03 1600 96 Room Air 12/03 1400 99.3 115 20 104/72 96 Room Air 12/03 0847 103 130/88 12/03 0847 103 130/88 12/03 0800 95 Room Air 12/03 0651 98.4 108 20 130/88 95 Room Air 12/02 2251 97.8 98 18 122/78 93 Room Air Intake & Output 12/03 1600 12/03 0812/03 0000 12/02 1600 12/02 0812/02 0000 Intake Total 630 1140 320 240 Output Total 6183 769 4330 Balance -545 1140 320 -600 -760 Intake, IV 130 900 Intake, Oral 500 240 320 240 Number 1 Bowel Movements Output, Urine 3269 629 2154 Patient 195 lb 225 lb Weight Weight Bed scale Reported by Patient Measurement Method Physical Exam: General: Alert, awake, no acute distress Extremities: Right lower extremity without clubbing, cyanosis, or edema, 2+ DP and PT pulse, left lower extremity with healing surgical scar on the medial thigh at the knee surgical scar is opened to a flat shiny granulated area about 1 cm in width continuing for the remainder of the incision, from the knee to the toes significant blanching erythema and pitting edema, nonpalpable DP or PT pulses, +DP and PT on Doppler Last 24 Hours of Labs: Laboratory Tests 12/03 12/02 0700 2142 Chemistry Sodium (137 - 145 mmol/L) 140 Potassium (3.5 - 5.1 mmol/L) 3.5 Chloride (98 - 107 mmol/L) 105 Carbon Dioxide (22 - 30 mmol/L) 26 Anion Gap (5 - 16) 9 BUN (9 - 20 mg/dL) 13 Creatinine (0.7 - 1.2 mg/dL) 0.7 Estimated GFR (>60 ml/min) > 60 BUN/Creatinine Ratio (7 - 25 %) 18.6 Troponin I (<0.11 ng/ml) < 0.01 Hematology CBC w Diff NO MAN DIFF REQ WBC (4.8 - 10.8 /CUMM) 9.9 RBC (4.70 - 6.10 /CUMM) 3.83 L Hgb (14.0 - 18.0 G/DL) 11.8 L Hct (42 - 52 %) 34.4 L MCV (80.0 - 94.0 FL) 89.8 MCH (27.0 - 31.0 PG) 30.8 MCHC (33.0 - 37.0 G/DL) 34.3 RDW (11.5 - 14.5 %) 14.6 H Plt Count (130 - 400 /CUMM) 146 MPV (7.4 - 10.4 FL) 8.3 Gran % (42.2 - 75.2 %) 82.5 H Lymphocytes % (20.5 - 51.1 %) 7.9 L Monocytes % (1.7 - 9.3 %) 9.0 Eosinophils % (0 - 5 %) 0.3 Basophils % (0.0 - 2.0 %) 0.3 Absolute Granulocytes (1.4 - 6.5 /CUMM) 8.2 H Absolute Lymphocytes (1.2 - 3.4 /CUMM) 0.8 L Absolute Monocytes (0.10 - 0.60 /CUMM) 0.9 H Absolute Eosinophils (0.0 - 0.7 /CUMM) 0 Absolute Basophils (0.0 - 0.2 /CUMM) 0 Imaging Results: Left lower extremity arterial duplex scan for 12/03/17: pending Assessment/Plan Assessment/Plan This is a 61-year-old male with past medical history significant for peripheral vascular disease, COPD, CHF and tobacco abuse who is status post [facility] He developed pain and swelling in the extremity several days ago and has been admitted to the medical service with current therapy for cellulitis. Consulted to Vascular Surgery with concern of graft issue. LLExt Arterial Duplex is pending. If negative may follow up with [facility] as [facility]. If positive, further recommendations to follow. Case to be discussed with Dr. Banerjee. Problem List: 1. Cellulitis Consult Acknowledgment - Thank you for your consult request.
[2017-12-03 21:42] VITALS: BP 128/80
--- NOTE | 2017-12-04 07:18 | PN- Housestaff ---
[facility] 0717: Subjective Follow-up For: Left leg cellulitis with open wound on the medial side of the knee. Jonnathanfib with RVR Tele-Events Since Last Visit: Irregular heart rhythm but couple of PVCs with heart rate between [id number] Review of Systems Constitutional: Denies: chills, fever. EENTM: Reports: no symptoms. Cardiovascular: Denies: chest pain, palpitations. Respiratory: Denies: cough, short of breath, sputum production. Gastrointestinal: Denies: abdominal pain, constipation, diarrhea. Genitourinary: Reports: no symptoms. Musculoskeletal: Reports: no symptoms. Neurological/Psychological: Reports: no symptoms. Objective Last 24 Hrs of Vital Signs/I&O Vital Signs Date Time Temp Pulse Resp B/P B/P Pulse O2 O2 Flow FiO2 Mean Ox Delivery Rate 12/03 2142 98.6 108 20 128/80 93 Room Air 12/03 1600 96 Room Air 12/03 1400 99.3 115 20 104/72 96 Room Air 12/03 0847 103 130/88 12/03 0847 103 130/88 Intake & Output 12/04 1600 12/04 0800 12/04 0000 Intake Total 780 Output Total 375 Balance 405 Intake, Oral 780 Output, Urine 375 Patient 197 lb Weight Physical Exam General Appearance: Alert, Oriented X3, Cooperative Skin Temp/Moisture Exam: Warm/Dry Sepsis Skin Exam (color): Normal for Ethnicity HEENT: Atraumatic, PERRLA, EOMI Neck: Supple Cardiovascular: Normal S1, Normal S2 Lungs: Clear to Auscultation Abdomen: Soft, No Tenderness Neurological: Normal Speech, Strength at 5/5 X4 Ext, Normal Tone Extremities: lEFT LEG SWELLING AND RENESS WITH WARMTH COMPARE TO RIGHT, Wound on medial side of left knee. Assessment/Plan Assessment: 61 YO M smoker with PMH of HTN, HLD, COPD not on home o2, CHF and left leg bypass on aug 2017 [facility] chief complain of shortness of breath for 1 day with left leg swelling and redness for last couple of weeks. We will keep the patient on telemetry floor following problems; Left leg cellulitis: -Continue IV Unasyn day 4 -Vancomycin was stopped as recommended by Dr. Latham, as patient doesn't have purulent cellulitis. -We will follow blood cultures -Leg elevation -patient has wound on medial side of left knee. -Wound consult -Patient will follow the vascular surgery at [place]. A.fib with RVR: -Eliquis 5mg bid -trops and EKGs are negative. -Echo in am History of hypertension and hyperlipidemia: -Continue home medications History of COPD: -Continue home medication -TRC nebulization as needed Smoking cessation: -Nicotine patch DVT prophylaxis: -Mechanical and subcutaneous heparin CODE STATUS: DNR/DNI Problem List: 1. Cellulitis Pain Ratin Pain Location: NONE Pain Goal: Remain pain free Pain Plan: pain pathway Tomorrow's Labs & Rationales: cbc/bep Mariposa Doshi MD 12/04/17 1005: Attending MD Review Statement Attending Statement Attending MD Statement: examined this patient, discuss w/resident/PA/OIL AND GAS FIELD TECHNICIAN, agreed w/resident/PA/OIL AND GAS FIELD TECHNICIAN, reviewed EMR data (avail) Attending Assessment/Plan: 61M PMH CHF, HTN, HLD, COPD, LLE bypass Aug 2017 with wound dehisicence and chronic wound requiring wound vac for several months admitted with cellulitis of the LLE with erythema, warmth, swelling, and pain, also found to be in multifocal atrial tachycardia. Afebrile overnight. Patient feels well and feels that his leg is improving. He denies SOB or chest pain. His leg is less swollen and less erythematous. WBC was 9 yesterday. 1. LLE cellulitis 2. Multifocal atrial tachycardia 3. PAD Plan - Discontinue telemetry - Continue Unasyn - Follow cultures - Wound and cardiology consults - Continue home medications - DVT PPx - Anticipated discharge tomorrow or Saturday depending on clinical improvement
--- NOTE | 2017-12-04 07:22 | ULTRASOUND REPORT ---
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 Left lower extremity ecchymosis, swelling and cellulitis. Evaluation of arterial graft requested. COMPARISON: Left lower extremity DVT study 12/01/2017 TECHNIQUE: Grayscale, color and spectral Doppler imaging was obtained of the deep arterial system of the left lower extremity. FINDINGS: The left common femoral artery and proximal portion of the left femoral artery are patent and demonstrate normal velocities. Waveforms in these arteries are monophasic suggesting inflow disease. The left profundus femoris artery is also patent with triphasic waveforms. There is a left lower extremity graft which extends from the mid femoral artery into the calf. The graft is patent. Mildly elevated velocities within the proximal portion of the graft and at the distal anastomosis potentially represent regions of stenosis. No color flow is noted within the [place] popliteal artery. 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 Color Doppler flow is noted within the left anterior and posterior tibial arteries and left dorsal pedis artery. IMPRESSION: 1. Patent left lower extremity bypass graft. Mildly elevated velocities within the proximal portion of the graft and at the distal anastomosis potentially represent regions of stenosis. 2. Monophasic waveforms of the left common femoral artery suggests inflow disease. 3. No color flow is noted within the [place] popliteal artery. 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 Further evaluation can be obtained with left lower extremity CTA if clinically indicated.
[2017-12-04 08:21] VITALS: BP 96/72
--- NOTE | 2017-12-04 08:26 | PN- Student ---
Subjective Subjective: Flutter and PVC's on monitor (98-158), otherwise no acute events over night. Patient seen and examined this morning. Patient resting in bed, without any complains. Denied leg pain, chest pain, fever, SOB, nausea/vomiting. Objective Objective: Vitals: T= 97.9 HR= 108 RR= 20 BP= 96/72 O2Sat= 97 RA I&O: I=560 O=6654 B=-1040 1 BM PE: General= alert and oriented Lungs=clear bilateral CVS= ragular rate and rythm Extremities= Left lower extremity warm and dry without cyanosis. Left lower extremity with healing surgical scar on the medial thigh. Gauze dressing around the knee are wet with serosanguinous fluid. Results Results: Laboratory Tests 12/03/17 0700: Anion Gap 9, Estimated GFR > 60, BUN/Creatinine Ratio 18.6, Magnesium 2.0, TSH & T3 &Free T4 Intrp Pending, CBC w Diff NO MAN DIFF REQ, RBC 3.83 L, MCV 89.8, MCH 30.8, MCHC 34.3, RDW 14.6 H, MPV 8.3, Gran % 82.5 H, Lymphocytes % 7.9 L, Monocytes % 9.0, Eosinophils % 0.3, Basophils % 0.3, Absolute Granulocytes 8.2 H, Absolute Lymphocytes 0.8 L, Absolute Monocytes 0.9 H, Absolute Eosinophils 0, Absolute Basophils 0 12/02/17 2142: Troponin I < 0.01 12/02/17 1515: Troponin I < 0.01 12/02/17 0556: Anion Gap 13, Estimated GFR > 60, BUN/Creatinine Ratio 23.8, CBC w Diff MAN DIFF ORDERED, RBC 4.12 L, MCV 90.2, MCH 30.8, MCHC 34.2, RDW 14.5, MPV 8.1, Gran % 91.3 H, Lymphocytes % 3.5 L, Monocytes % 5.2, Eosinophils % 0, Basophils % 0, Absolute Granulocytes 10.7 H, Segmented Neutrophils 84 H, Band Neutrophils 4, Absolute Lymphocytes 0.4 L, Lymphocytes 9 L, Monocytes 3, Absolute Monocytes 0.6, Absolute Eosinophils 0, Absolute Basophils 0, Platelet Estimate ADEQUATE, Polychromasia 1+, Ovalocytes FEW, Fld Total RBCs Counted 100 04/08/18 2200: Urine Opiates Screen < 100, Methadone Screen 84, Barbiturate Screen < 60, Ur Phencyclidine Scrn < 6.00, Amphetamines Screen < 100, U Benzodiazepines Scrn < 85, Urine Cocaine Screen < 50, Urine Cannabis Screen < 5.00 12/01/17 1718: Lactic Acid 1.1 12/01/17 152: Anion Gap 14, Estimated GFR > 60, BUN/Creatinine Ratio 19.0, Glucose 134 H, Lactic Acid 2.4 H, Calcium 8.4, Total Bilirubin 0.6, AST 17, ALT 19 L, Alkaline Phosphatase 70, Troponin I 0.01, Iyk-X-Qotzunissps Pept 4670 H, Total Protein 6.1 L, Albumin 3.3 L, Globulin 2.8, Albumin/Globulin Ratio 1.2, CBC w Diff NO MAN DIFF REQ, RBC 4.43 L, MCV 90.2, MCH 30.0, MCHC 33.3, RDW 14.3, MPV 7.9, Gran % 94.1 H, Lymphocytes % 2.3 L, Monocytes % 3.5, Eosinophils % 0, Basophils % 0.1, Absolute Granulocytes 14.1 H, Absolute Lymphocytes 0.3 L, Absolute Monocytes 0.5, Absolute Eosinophils 0, Absolute Basophils 0, ESR Westergren 23 H, Serum Alcohol < 10.0 Microbiology 12/01 2199 URINE ROUT: Legionella Antigen - COMP 12/01 2199 URINE ROUT: Streptococcus pneumoniae Antigen (M - COMP 12/02 1819 LOWER RESP: Respiratory Culture - CAN Cancelled: NO SPUTUM COLLECTED 12/02 1819 LOWER RESP: Gram Stain - CAN Cancelled: NO SPUTUM COLLECTED 12/02 1527 BLOOD: Blood Culture - RES 12/01 1521 BLOOD: Blood Culture - RES Assessment/Plan Assessment: 61 y/o smoker male with PMHx of COPD, CFH, HTN, and PVD s/p [facility] Came to the ED for pain and swelling in the extremity several days ago and has been admitted to the medical service with current therapy for cellulitis. Admitted to the cardiac unit monitoring with 3/4 SIRS criteria. Arterial duplex showed: Patent left lower extremity bypass graft. Plan: Left leg cellulitis -Cont. IV Unasyn -F/U blood cx -Leg elevation (recommended to change bed) -Wound care is following -Vascular surgery: No further surgical intervention is warrented at this time Irregular heart rhythm -Patient has irregular rhythm possibly due to MAT -trops and EKGs are negative. History of hypertension and hyperlipidemia -Cont. home medications History of COPD -Cont. home medication
--- NOTE | 2017-12-04 09:03 | PN- Wound Care ---
Subjective Subjective: Patient feels better though continues to have significant lower extremity edema and erythema Objective Vital Signs and I&Os Vital Signs Result Date Time Pulse Ox 97 12/04 820 B/P 96/72 12/04 820 O2 Delivery Room Air 12/04 820 Temp 97.9 12/04 820 Pulse 108 12/04 820 Resp 20 12/04 820 O2 Flow Rate Room Air 12/02 0606 Intake & Output 12/04 0000 12/03 1600 12/03 0800 Intake Total 674 338 3725 Output Total 375 1175 Balance 405 -545 1140 Intake, IV 130 900 Intake, Oral 780 500 240 Output, Urine 375 1175 Patient 197 lb Weight Patient is remained afebrile left lower extremity ulcer is clean red bed and appears to have contracted somewhat there continues to have edema and erythema of the leg. Vascular follow-up after ultrasound is pending Impression/Plan Impression/Plan Impression/Plan: 61-year-old gentleman with peripheral vascular disease status post bypass surgery wound dehiscence admitted with acute soft tissue skin infection which is clinically improved with diminished white count and fever. Complete course of antibiotics change his bed 21 which will be able to more effectively elevate his leg vascular surgery follow-up for results of ultrasound continue twice-daily Dakin's
--- NOTE | 2017-12-04 09:44 | PN- Vascular Surgery ---
Subjective Subjective: Arterial duplex reviewed. Objective Vital Signs and I&Os Vital Signs Date Time Temp Pulse Resp B/P B/P Pulse O2 O2 Flow FiO2 Mean Ox Delivery Rate 12/04 0821 97.9 108 20 96/72 97 Room Air 12/03 2142 98.6 108 20 128/80 93 Room Air 12/03 1600 96 Room Air 12/03 1400 99.3 115 20 104/72 96 Room Air Intake & Output 12/04 1600 12/04 0800 12/04 0000 12/03 1600 12/03 0800 12/03 0000 Intake Total 300 231 859 8130 320 Output Total 1837 273 1547 Balance -700 405 -545 1140 320 Intake, IV 100 130 900 Intake, Oral 200 780 500 240 320 Number 1 Bowel Movements Output, Urine 8172 957 7963 Patient 197 lb 195 lb Weight Weight Bed scale Measurement Method Results Recent Imaging Studies: SERVICE DATE: 12/03/17- EXAM TYPE: US - US-DUPLEX SCAN LOWER EXT ARTER EXAMINATION: US DUPLEX LOWER EXTREMITY ARTERY/GRAFT LIMITED, LEFT CLINICAL INFORMATION: 61-year-old male with history of 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 Left lower extremity ecchymosis, swelling and cellulitis. Evaluation of arterial graft requested. COMPARISON: Left lower extremity DVT study 12/01/2017 TECHNIQUE: Grayscale, color and spectral Doppler imaging was obtained of the deep arterial system of the left lower extremity. FINDINGS: The left common femoral artery and proximal portion of the left femoral artery are patent and demonstrate normal velocities. Waveforms in these arteries are monophasic suggesting inflow disease. The left profundus femoris artery is also patent with triphasic waveforms. There is a left lower extremity graft which extends from the mid femoral artery into the calf. The graft is patent. Mildly elevated velocities within the proximal portion of the graft and at the distal anastomosis potentially represent regions of stenosis. No color flow is noted within the [place] popliteal artery. 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 Color Doppler flow is noted within the left anterior and posterior tibial arteries and left dorsal pedis artery. IMPRESSION: 1. Patent left lower extremity bypass graft. Mildly elevated velocities within the proximal portion of the graft and at the distal anastomosis potentially represent regions of stenosis. 2. Monophasic waveforms of the left common femoral artery suggests inflow disease. 3. No color flow is noted within the [place] popliteal artery. 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 Further evaluation can be obtained with left lower extremity CTA if clinically indicated. Assessment/Plan Assessment/Plan This is a 61 year old male with a PMHx of PVD, COPD, CHF and tobacco abuse who is status post left lower extremity bypass for an aneurysm by the [facility] in August who was admitted with cellulitis. Left lower extremity arterial duplex was reviewed and revaled his bypass is open and functioning. No further surgical intervention is warrented at this time. Patient may follow up with his established vascular surgeon at the [facility] or he may follow up with Dr. Banerjee as an outpatient. Discussed with Dr. Banerjee who is in agreement.
--- NOTE | 2017-12-04 11:49 | Cons- Cardiology ---
General Information and HPI Consulting Request Date of Consult: 12/04/17 Requested By: Mariposa Doshi MD Reason for Consult: Atrial fibrillation Source of Information: patient History of Present Illness: This is a 61-year-old male with a past medical history of COPD, nicotine dependence, hypertension, hyperlipidemia, and peripheral vascular disease with prior lower extremity bypass due to aneurysm who presented from his [facility] [place] [facility] with a chief complaint of increasing left lower extremity edema with erythema and pain over approximately 1 week; denied associated chest pain or palpitations but did have some mild dyspnea which has subsequently improved. Denied associated orthopnea or paroxysmal nocturnal dyspnea. 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 Denied headache, slurring of speech, visual changes, or focal weakness. He did have some weakness and reported subjective fevers. Allergies/Medications Allergies: Coded Allergies: No Known Allergies (12/01/17) Home Med List: Acetaminophen (Tylenol) 325 MG TABLET 2 TAB PO QPM PAIN (Reported) Aspirin (Aspirin*) 81 MG TAB.CHEW 1 TAB PO DAILY HEART HEALTH (Reported) Atorvastatin Calcium 10 MG TABLET 1 TAB PO 1700 CHOLESTEROL (Reported) Citalopram Hydrobromide (Celexa) 40 MG TABLET 1 TAB PO DAILY MENTAL HEALTH ( Reported) Clonazepam 0.5 MG TABLET 1 TAB PO DAILY ANXIETY (Reported) Metoprolol Succ XL (Toprol Xl) 50 MG TAB 1 TAB PO DAILY HEART (Reported) Risperidone (Risperdal) 2 MG TABLET 1 TAB PO QPM MENTAL HEALTH (Reported) Tamsulosin HCl (Flomax) 0.4 MG CAP.ER.24H 1 CAP PO DAILY PROSTATE (Reported) Trazodone HCl 100 MG TABLET 1 TAB PO QPM SLEEP (Reported) Current Medications: Current Medications Sig/Rebel Start time Last Medication Dose Route Stop Time Status Admin Acetaminophen 500 MG Q6P PRN 12/03 1430 AC 12/03 PO 1425 Acetaminophen 650 MG AT BEDTIME PRN 12/03 1414 DC PO Acetaminophen 650 MG AT BEDTIME 12/01 2200 DC 12/02 PO 2104 Ampicillin Sodium/ 3,000 MG Q6H 12/03 0030 AC 12/04 Sulbactam Sodium IV 0706 Sodium Chloride 100 ML Aspirin 81 MG DAILY 12/02 1000 AC 12/04 PO 1010 Atorvastatin Calcium 10 MG 1700 12/02 1700 AC 12/03 PO 1739 Citalopram 40 MG DAILY 12/02 1000 AC 12/04 Hydrobromide PO 1010 Clonazepam 0.5 MG DAILY 12/02 1000 AC 12/04 PO 12/09 0959 1010 Heparin Sodium 5,000 UNIT Q8 12/01 2200 AC 12/04 (Porcine) SC 0706 Metoprolol Succinate 75 MG DAILY 12/03 1000 AC 12/04 PO 1010 Nicotine 14 MG DAILY 12/02 1157 AC 12/04 TOP 1013 Risperidone 2 MG AT BEDTIME 12/01 2200 AC 12/03 PO 2026 Senna/Docusate Sodium 2 TAB DAILY PRN 12/01 1845 AC PO Sodium Hypochlorite 1 DYLAN BID 12/03 1147 AC 12/04 TOP 1011 Tamsulosin HCl 0.4 MG DAILY 12/01 1839 AC 12/04 PO 1010 Trazodone HCl 100 MG AT BEDTIME 12/01 2200 AC 12/03 PO 202 Vancomycin HCl 1,500 MG Q12H 12/03 1100 DC Sodium Chloride 250 ML IV Review of Systems Review of Systems: Review of systems as per HPI. The remainder of a 10 point review of systems was reviewed and was otherwise negative. Past History Travel History Traveled to [place] past 21 day No Medical History Cardiovascular: CHF, hypertension, hyperlipidemia Respiratory: COPD Surgical History Surgical History: RLE BYPASS SEP 12 Psychosocial History Where Do You Live? Other Services at Home: Nursing Smoking Status: Former Smoker Exam & Diagnostic Data Vital Signs and I&O Vital Signs Date Time Temp Pulse Resp B/P B/P Pulse O2 O2 Flow FiO2 Mean Ox Delivery Rate 12/04 1010 108 96/72 12/04 1010 108 96/72 12/04 0821 97.9 108 20 96/72 97 Room Air 12/03 2142 98.6 108 20 128/80 93 Room Air 12/03 1600 96 Room Air 12/03 1400 99.3 115 20 104/72 96 Room Air Intake & Output 12/04 1600 12/04 0800 12/04 0000 12/03 1600 12/03 0800 12/03 0000 Intake Total 300 273 461 2102 320 Output Total 9224 250 6677 Balance -700 405 -545 1140 320 Intake, IV 100 130 900 Intake, Oral 200 780 500 240 320 Number 1 Bowel Movements Output, Urine 5607 768 1402 Patient 197 lb 195 lb Weight Weight Bed scale Measurement Method Physical Exam: General: no apparent distress. Alert. Eyes: No obvious scleral icterus. HEENT: No jugular venous distention or abnormal jugular venous pulsations. Cardiovascular: Normal intensity S1/S2. Irregular Respiratory: No rales or rhonchi Abdomen: Soft, nontender with no guarding or rebound tenderness. Musculoskeletal: Decreased pulses; left lower extremity edema with erythema and surgical scar Skin: Warm Neurologic: No gross focal deficits noted. Labs/Manuel Results: Laboratory Tests 12/03 12/02 12/02 0700 2142 1515 Chemistry Sodium (137 - 145 mmol/L) 140 Potassium (3.5 - 5.1 mmol/L) 3.5 Chloride (98 - 107 mmol/L) 105 Carbon Dioxide (22 - 30 mmol/L) 26 Anion Gap (5 - 16) 9 BUN (9 - 20 mg/dL) 13 Creatinine (0.7 - 1.2 mg/dL) 0.7 Estimated GFR (>60 ml/min) > 60 BUN/Creatinine Ratio (7 - 25 %) 18.6 Magnesium (1.6 - 2.3 mg/dL) 2.0 Troponin I (<0.11 ng/ml) < 0.01 < 0.01 TSH &T3 &Free T4 Intrp (0.27 - 4.20 uIU/mL) 3.450 Hematology CBC w Diff NO MAN DIFF REQ WBC (4.8 - 10.8 /CUMM) 9.9 RBC (4.70 - 6.10 /CUMM) 3.83 L Hgb (14.0 - 18.0 G/DL) 11.8 L Hct (42 - 52 %) 34.4 L MCV (80.0 - 94.0 FL) 89.8 MCH (27.0 - 31.0 PG) 30.8 MCHC (33.0 - 37.0 G/DL) 34.3 RDW (11.5 - 14.5 %) 14.6 H Plt Count (130 - 400 /CUMM) 146 MPV (7.4 - 10.4 FL) 8.3 Gran % (42.2 - 75.2 %) 82.5 H Lymphocytes % (20.5 - 51.1 %) 7.9 L Monocytes % (1.7 - 9.3 %) 9.0 Eosinophils % (0 - 5 %) 0.3 Basophils % (0.0 - 2.0 %) 0.3 Absolute Granulocytes (1.4 - 6.5 /CUMM) 8.2 H Absolute Lymphocytes (1.2 - 3.4 /CUMM) 0.8 L Absolute Monocytes (0.10 - 0.60 /CUMM) 0.9 H Absolute Eosinophils (0.0 - 0.7 /CUMM) 0 Absolute Basophils (0.0 - 0.2 /CUMM) 0 Diagnostic Data EKG Results Tracing was personally reviewed and initially showed sinus rhythm and then subsequently showed atrial fibrillation with rapid ventricular response rate and nonspecific STT abnormalities CXR Results Mild prominence of the background interstitium which could reflect interstitial edema. No dense consolidation. Other Results Telemetry tracings were personally reviewed and showed atrial fibrillation with mildly elevated ventricular response rate Assessment/Plan Assessment/Plan 1. Atrial fibrillation with rapid ventricular response rate; ?New onset 2. COPD 3. Cellulitis 4. Nicotine dependence 5. History of hypertension/hyperlipidemia 6. Peripheral vascular disease with prior lower extremity bypass due to aneurysm Patient was initially in sinus rhythm but then noted to be in atrial fibrillation with rapid ventricular response rate although he currently has no active symptoms from this. Given his elevated chads-vasc score would recommend initiating Eliquis 5 mg p.o. twice daily. Obtain a transthoracic echo. Agree with the increased beta-bess dose if blood pressure tolerates but I suspect some of the tachycardia is being driven by his infection; antibiotics per the medical team. Recommend obtaining outpatient medical records including records from his outpatient commercial decorator. Continue on telemetry. Mehul Gilbert MD [facility] Consult Acknowledgment - Thank you for your consult request.
[2017-12-04 14:27] VITALS: BP 102/60
[2017-12-04 23:22] VITALS: BP 118/80
[2017-12-05 06:38] VITALS: BP 130/92
--- NOTE | 2017-12-05 07:32 | PN- Housestaff ---
[facility] [place] Subjective Follow-up For: Left leg cellulitis with open wound on the medial side of the knee. A.fib with RVR Tele-Events Since Last Visit: Milagro. ivanna with heart rate between 981 32 Subjective: No overnight events. Patient remained afebrile. Seen and examined this morning. He denied any chest pain, short of breath, nausea, vomiting, chills, fever and dysuria. Review of Systems Constitutional: Denies: chills, fever. EENTM: Reports: no symptoms. Cardiovascular: Denies: chest pain, palpitations. Respiratory: Denies: cough, short of breath, sputum production. Gastrointestinal: Denies: abdominal pain, constipation, diarrhea, nausea. Genitourinary: Reports: no symptoms. Musculoskeletal: Reports: no symptoms. Neurological/Psychological: Reports: no symptoms. Objective Last 24 Hrs of Vital Signs/I&O Vital Signs Date Time Temp Pulse Resp B/P B/P Pulse O2 O2 Flow FiO2 Mean Ox Delivery Rate 12/05 0638 98.2 109 20 130/92 96 Room Air 12/04 2322 98.2 95 16 118/80 96 Room Air 12/04 1427 98.0 100 20 102/60 96 Room Air 12/04 1010 108 96/72 12/04 1010 108 96/72 12/04 0821 97.9 108 20 /72 97 Room Air Intake & Output 12/05 0800 12/05 0000 12/04 1600 Intake Total 360 120 600 Output Total 523 982 7787 Balance -40 -280 -650 Intake, IV 240 100 Intake, Oral 120 120 500 Output, Urine 684 478 1013 Patient 190 lb Weight Weight Standing Scale Measurement Method Physical Exam General Appearance: Alert, Oriented X3, Cooperative Skin: No Rashes Skin Temp/Moisture Exam: Warm/Dry Sepsis Skin Exam (color): Normal for Ethnicity HEENT: Atraumatic, PERRLA, EOMI Neck: Supple Cardiovascular: Normal S1, Normal S2 Lungs: Clear to Auscultation Abdomen: Soft, No Tenderness Neurological: Normal Speech, Strength at 5/5 X4 Ext, Normal Tone, Sensation Intact Extremities: left leg swelling and redness, wound on the left leg Assessment/Plan Assessment: 61 YO M smoker with PMH of HTN, HLD, COPD not on home o2, CHF and left leg bypass on aug 2017 [facility] with chief complain of shortness of breath for 1 day with left leg swelling and redness for last couple of weeks. We will keep the patient on telemetry floor following problems; Left leg cellulitis: -Continue IV Unasyn day 5 -We will follow blood cultures -Leg elevation -patient has wound on medial side of left knee. -Wound consult -Patient will follow the vascular surgery at [facility]. A.fib with RVR: -Eliquis 5mg bid -Rate control with cardizem 30mg q8 and metoprolol 200mg -trops and EKGs are negative. -Echo is pending. History of hypertension and hyperlipidemia: -Continue home medications History of COPD: -Continue home medication -TRC nebulization as needed Smoking cessation: -Nicotine patch DVT prophylaxis: -Mechanical and subcutaneous heparin CODE STATUS: DNR/DNI Problem List: 1. A-fib 2. Cellulitis Pain Ratin Pain Location: none Pain Goal: Remain pain free Pain Plan: pain pathway Tomorrow's Labs & Rationales: Mariposa Infante MD 12/05/17 1055: Attending MD Review Statement Attending Statement Attending MD Statement: examined this patient, discuss w/resident/PA/[employer]PER[employer], agreed w/resident/PA/[employer]PERVISOR, reviewed EMR data (avail) Attending Assessment/Plan: 61M PMH CHF, HTN, HLD, COPD, LLE bypass Aug 2017 with wound dehisicence and chronic wound requiring wound vac for several months admitted with cellulitis of the LLE with erythema, warmth, swelling, and pain, also found to be in multifocal atrial tachycardia. Afebrile overnight. Patient feels well and feels that his leg is improving. He denies SOB or chest pain. His leg is less swollen and less erythematous. WBC was 9 yesterday. Still tachycardic today. 1. LLE cellulitis 2. Multifocal atrial tachycardia 3. PAD Plan - Continue telemetry - Continue Unasyn - Follow cultures - Wound and cardiology consults - Continue home medications - DVT PPx - PT eval for discharge planning - Potential discharge tomorrow or Saturday pending clinical course. Will eventually discharge on Augmentin to complete 10 day course with outpatient wound care follow up.
--- NOTE | 2017-12-05 10:26 | PN- Cardiology ---
Subjective Subjective: Telemetry reviewed. Atrial fibrillation with ventricular rate from 110-120. Patient sitting out of bed in a chair claims to feel well Objective Vital Signs and I&Os Vital Signs Date Time Temp Pulse Resp B/P B/P Pulse O2 O2 Flow FiO2 Mean Ox Delivery Rate 12/05 0808 130/84 12/05 0807 130/84 12/05 0638 98.2 109 20 130/92 96 Room Air 12/04 2322 98.2 95 16 118/80 96 Room Air 12/04 1427 98.0 100 20 102/60 96 Room Air Intake & Output 12/05 1600 12/05 0800 12/05 0000 12/04 1600 12/04 0800 12/04 0000 Intake Total 360 120 600 300 780 Output Total 028 001 1105 1000 375 Balance -40 -280 -650 -700 405 Intake, IV 240 100 100 Intake, Oral 120 120 500 200 780 Output, Urine 238 275 4147 1000 375 Patient 190 lb 197 lb Weight Weight Standing Scale Measurement Method Physical Exam: On general exam patient appears comfortable sitting out of bed in a chair Head normocephalic atraumatic Eyes sclera anicteric conjunctiva showed mild pallor extraocular muscles were normal Neck no jugular venous distention no thyroid masses no palpable nodes Chest lungs are clear bilaterally Heart irregular regular rhythm with a ventricular rate of around 120 Abdomen soft no organomegaly bowel sounds normal Extremities no clubbing cyanosis left leg had cellulitis Neurological no gross motor or sensory deficits Current Medications: Current Medications Sig/Rebel Start time Last Medication Dose Route Stop Time Status Admin Acetaminophen 500 MG Q6P PRN 12/03 1430 AC 12/03 PO 1425 Ampicillin Sodium/ 3,000 MG Q6H 12/03 0030 AC 12/05 Sulbactam Sodium IV 0601 Sodium Chloride 100 ML Apixaban 5 MG BID 12/04 1524 AC 12/05 PO 0806 Aspirin 81 MG DAILY 12/02 1000 AC 12/05 PO 0806 Atorvastatin Calcium 10 MG 1700 12/02 1700 AC 12/04 PO 1822 Bisacodyl 5 MG DAILY 12/05 0940 UNVr PO Citalopram 40 MG DAILY 12/02 1000 AC 12/05 Hydrobromide PO 0806 Clonazepam 0.5 MG DAILY 12/02 1000 AC 12/05 PO 12/09 0959 0811 Heparin Sodium 5,000 UNIT Q8 12/01 2200 AC 12/05 (Porcine) SC 0601 Metoprolol Succinate 75 MG DAILY 12/03 1000 AC 12/05 PO 0808 Nicotine 14 MG DAILY 12/02 1157 AC 12/05 TOP 0806 Polyethylene Glycol 17 GM DAILY 12/05 0940 UNVr PO Risperidone 2 MG AT BEDTIME 12/01 2200 AC 12/04 PO 2136 Senna/Docusate Sodium 2 TAB DAILY PRN 12/01 1845 AC PO Sodium Hypochlorite 1 DYLAN BID 12/03 1147 AC 12/05 TOP 0808 Tamsulosin HCl 0.4 MG DAILY 12/01 1839 AC 12/05 PO 0807 Trazodone HCl 100 MG AT BEDTIME 12/01 2200 AC 12/04 PO 2136 Results Last 48 Hrs of Labs/Mics: Laboratory Tests 12/05/17 0810: Anion Gap 9, Estimated GFR > 60, BUN/Creatinine Ratio 21.7 Recent Imaging Studies: Chest x-rayMild prominence of the background interstitium which could reflect interstitial edema. No dense consolidation. Duplex venous ultrasoundIMPRESSION: No evidence of DVT in the left lower extremity. Assessment/Plan Assessment/Plan In summary this 61-year-old gentleman who is followed at the [facility], presents with cellulitis and noted to have atrial fibrillation. He has the following problems 1. Atrial fibrillation with rapid ventricular response rate; ?New onset 2. COPD 3. Cellulitis 4. Nicotine dependence 5. History of hypertension/hyperlipidemia 6. Peripheral vascular disease with prior lower extremity bypass due to aneurysm His ventricular rate still appears rapid. I would increase his metoprolol succinate 200 mg a day, and add diltiazem 30 mg every 8 hours in an attempt to get rate control. If he fails diltiazem I would substitute this with digoxin. Echocardiogram is still pending. He is on oral anticoagulation with Eliquis 5 mg twice a day. Continue telemetry? Yes
[2017-12-05 15:44] VITALS: BP 130/96
[2017-12-05 22:00] VITALS: BP 102/64
[2017-12-06 06:02] VITALS: BP 110/80
[2017-12-06] MEDS ORDERED: CARDIZEM30 M1 PO (06:26)
[2017-12-06] MEDS ORDERED: TOPROL XL100 M1 PO (06:26)
[2017-12-06] MEDS ORDERED: ELIQUIS5 M1 PO (06:26)
--- NOTE | 2017-12-06 07:52 | PN- Housestaff ---
[facility]: Subjective Follow-up For: Left leg cellulitis with open wound on the medial side of the knee. (IMPROVING) Fatmata with RVR Tele-Events Since Last Visit: Patient was converted to sinus rhythm last night. This morning he is in sinus rhythm with heart rate between [address]58 Subjective: No overnight events. Patient remained afebrileand examined this morning. He denied any chest pain, short of breath, nausea, vomiting, chills, fever, abdominal pain and dysuria. He is feeling much improved. His left leg redness has improved. Review of Systems Constitutional: Denies: chills, fever. EENTM: Reports: no symptoms. Cardiovascular: Denies: chest pain, palpitations. Respiratory: Denies: cough, short of breath, sputum production. Gastrointestinal: Denies: abdominal pain, constipation, diarrhea, nausea. Genitourinary: Reports: no symptoms. Musculoskeletal: Reports: no symptoms. Neurological/Psychological: Reports: no symptoms. Objective Last 24 Hrs of Vital Signs/I&O Vital Signs Date Time Temp Pulse Resp B/P B/P Pulse O2 O2 Flow FiO2 Mean Ox Delivery Rate 12/06 0602 98.2 76 20 110/80 95 Room Air 12/06 0523 78 110/80 12/05 2200 98.3 85 16 102/64 96 Room Air 12/05 2155 85 102/64 12/05 1544 98.0 95 20 130/96 97 12/05 0808 130/84 12/05 0807 130/84 Intake & Output 12/06 1600 12/06 0800 12/06 0000 Intake Total 200 Output Total Balance 200 Intake, IV 200 Patient 201 lb Weight Weight Chair scale Measurement Method Physical Exam General Appearance: Alert, Oriented X3, Cooperative Skin: No Rashes Skin Temp/Moisture Exam: Warm/Dry Sepsis Skin Exam (color): Normal for Ethnicity HEENT: Atraumatic, PERRLA, EOMI Neck: Supple Cardiovascular: Normal S1, Normal S2 Lungs: Clear to Auscultation Abdomen: Soft, No Tenderness Neurological: Normal Speech, Strength at 5/5 X4 Ext, Normal Tone Extremities: lEFT LEG SWELLING. Redness has improved. Assessment/Plan Assessment: 61 YO M smoker with PMH of HTN, HLD, COPD not on home o2, CHF and left leg bypass on aug 2017 [facility] complain of shortness of breath for 1 day with left leg swelling and redness for last couple of weeks. We will keep the patient on telemetry floor following problems; Left leg cellulitis: -Continue IV Unasyn day 6 -Blood cultures are negative so far -Leg elevation -patient has wound on medial side of left knee. -Daily dressing and cleaning of the wound with Dakin solution -Patient will follow the vascular surgery at [place]. A.fib with RVR: -Eliquis 5mg bid -Rate control with cardizem 30mg q8 and metoprolol 200mg -trops and EKGs are negative. -Echo ejection fraction 50-55%. Aortic root size is 5.5cm History of hypertension and hyperlipidemia: -Continue home medications History of COPD: -Continue home medication -TRC nebulization as needed Smoking cessation: -Nicotine patch DVT prophylaxis: -Mechanical and subcutaneous heparin CODE STATUS: DNR/DNI Problem List: 1. Cellulitis Pain Ratin Pain Location: none Pain Goal: Remain pain free Pain Plan: pain pathway Tomorrow's Labs & Rationales: none Mariposa Doshi MD 12/06/17 1057: Attending MD Review Statement Attending Statement Attending MD Statement: examined this patient, discuss w/resident/PA/REGISTERED NURSE TEACHER, agreed w/resident/PA/REGISTERED NURSE TEACHER, reviewed EMR data (avail) Attending Assessment/Plan: 61M PMH CHF, HTN, HLD, COPD, LLE bypass Aug 2017 with wound dehisicence and chronic wound requiring wound vac for several months admitted with cellulitis of the LLE with erythema, warmth, swelling, and pain, also found to be in multifocal atrial tachycardia. Afebrile overnight. Left leg still with patchy erythema, worse around foot. He does not complain of pain, and remains afebrile. His echocardiogram showed no valvular abnormalities, normal EF, and 5.5cm aortic root aneurysm. Per cardiology review of [facility] records this is chronic and being worked up at the [facility], with a CTA chest done in August showing that it is unchanged. 1. LLE cellulitis 2. Multifocal atrial tachycardia 3. PAD 4. Aortic root aneurysm Plan - Continue telemetry - Continue Unasyn - Follow cultures - Wound and cardiology consults - Continue home medications - DVT PPx - Wound vac placement - Outpatient cardiothoracic surgery follow up with the [place]
--- NOTE | 2017-12-06 08:36 | PN- Wound Care ---
Subjective Subjective: Patient feels improved and erythema is markedly decreased. The wound is 100% red fill. Objective Vital Signs and I&Os Vital Signs Result Date Time Pulse Ox 95 12/06 601 B/P 110/80 12/06 601 O2 Delivery Room Air 12/06 601 Temp 98.2 12/06 601 Pulse 76 12/06 601 Resp 20 12/06 601 O2 Flow Rate Room Air 12/02 06 Intake & Output 12/06 0000 12/05 1600 12/05 0800 Intake Total 500 360 Output Total 700 400 Balance -200 -40 Intake, IV 100 240 Intake, Oral 400 120 Output, Urine 700 400 Patient 201 lb Weight Weight Chair scale Measurement Method There is marked decrease in erythema though edema persists left leg wound continues to be clean with 100% red fill. Impression/Plan Impression/Plan Impression/Plan: 61-year-old gentleman with peripheral vascular disease status post bypass with wound dehiscence admitted with acute soft tissue skin infection. Cellulitis appears improved/would recommend replacement of wound VAC to be changed Saturday
--- NOTE | 2017-12-06 09:12 | Patient Discharge Instructions ---
Discharge Instructions General Discharge Information You were seen/treated for: Left leg cellulitis A.fib with RVR Watch for these problems: Chest pain, palpitation, shotness of breath, light headedness, cough, sputum, fever, leg swelling, redness or pain in leg. If you experience any of these symptoms come to ED or call to your pcp. Special Instructions: Follow up with your pcp in one week. Follow up with your cardiologis in one week. Follow up with vascular surgery at [facility] in one week. Follow-up with cardiothoracic surgeon at [facility] for dilated aortic root. Diet Recommended Diet: Heart Healthy Activity Activity Self Limited: Yes Acute Coronary Syndrome Inclusion Criteria At [place] or during hospital stay patient has or had the following: ACS DIAGNOSIS No Discharge Core Measures Meds if any: Prescribed or Continued at Discharge Meds if any: NOT Prescribed or Continued at Discharge Congestive Heart Failure Inclusion Criteria At [place] or during hospital stay patient has or had the following: CHF DIAGNOSIS No Discharge Core Measures Meds if any: Prescribed or Continued at Discharge Meds if any: NOT Prescribed or Continued at Discharge Cerebrovascular accident Inclusion Criteria At [place] or during hospital stay patient has or had the following: CVA/TIA Diagnosis No Discharge Core Measures Meds if any: Prescribed or Continued at Discharge Meds if any: NOT Prescribed or Continued at Discharge Venous thromboembolism Inclusion Criteria VTE Diagnosis No VTE Type NONE VTE Confirmed by (Test) NONE Discharge Core Measures - Per Current guidelines, there needs to be overlap - treatment for the first 5 days of Warfarin therapy. - If discharged on Warfarin prior to 5 days of - overlap therapy, the patient will need to be - assessed for post discharge needs including - *Post discharge parental anticoagulation - *Warfarin and/or parental anticoagulation education - *Follow up date to check INR post discharge At least 5 days overlap therapy as Inpatient No Meds if any: Prescribed or Continued at Discharge Note: Overlap Therapy is Warfarin and Anticoagulant Meds if any: NOT Prescribed or Continued at Discharge
--- NOTE | 2017-12-06 09:32 | ECHOCARDIOGRAM REPORT ---
SANDRA IZAGUIRRE Age: 61 : 1955 Gender: M Exam Date: 12/05/2017 16:32 Exam Location: 1 [address] Ht (in): 72 Wt (lb): 196 BSA: 2.14 BP: 130 / 84 Ordering Physician: Avtar Mathew MD Referring Physician: Avtar Mathew MD Technologist: Bhavin Corley [facility] Room Number: 175-1 Indications: ARRHYTHMIAS Rhythm: Technical Quality: Technically difficult study FINDINGS Left Ventricle Left ventricular cavity size normal. Left ventricular wall thickness mildly increased. Borderline normal left ventricular ejection fraction estimated at 50-55%. Right Ventricle Right ventricle not well visualized, grossly normal. Right Atrium Mild right atrial dilatation. Left Atrium Mild left atrial dilatation. Mitral Valve No mitral stenosis. Trace to mild mitral regurgitation. Aortic Valve Aortic valve not well visualized. No aortic stenosis. Can note exclude bicuspid aortic valve. Mild aortic regurgitation. Tricuspid Valve Structurally normal tricuspid valve. Mild tricuspid regurgitation. Unable to estimate the right ventricular systolic pressure. Pulmonic Valve Pulmonic valve not well visualized. Pericardium No pericardial effusion. Great Vessels Aorta at the level of the sinuses of valsalva (root) dilated at 5.5 cm. CONCLUSIONS Technically difficult study. Left ventricular cavity size normal. Left ventricular wall thickness mildly increased. Borderline normal left ventricular ejection fraction estimated at 50-55%. Mild right atrial dilatation. Mild left atrial dilatation. Can note exclude bicuspid aortic valve. Mild aortic regurgitation. Aorta at the level of the sinuses of valsalva (root) dilated at 5.5 cm. Mika Gilbert M.D. (Electronically Signed) Final Date: 06 December 2017 09:31 MEASUREMENTS (Male / Female) Normal Values 2D ECHO LV Diastolic Diameter PLAX 5.5 cm 4.2 - 5.9 / 3.9 - 5.3 cm LV Systolic Diameter PLAX 3.7 cm 2.1 - 4.0 cm LV Fractional Shortening PLAX 32.7 % 25 - 46 % LV Ejection Fraction 2D Teich 60.6 % IVS Diastolic Thickness 1.0 cm LVPW Diastolic Thickness 1.4 cm LV Relative Wall Thickness 0.4 LVOT Diameter 2.3 cm Aortic Root Diameter 5.5 cm LA Systolic Diameter LX 1.9 cm 3.0 - 4.0 / 2.7 - 3.8 cm LV Ejection Fraction MOD BP 45.1 % >= 55 % LV Cardiac Index MOD BP 1678.9 cm/minm LV Diastolic Length 4C 6.9 cm 6.9 - 10.3 cm LV Diastolic Area 4C 30.6 cm LV Diastolic Volume MOD 4C 110.0 cm LV Ejection Fraction MOD 4C 50.9 % LV Stroke Volume MOD 4C 56.0 cm LV Cardiac Index MOD 4C 2043.9 cm/minm LV Systolic Length 4C 6.5 cm LV Systolic Area 4C 20.6 cm LV Systolic Volume MOD 4C 54.0 cm LV Ejection Fraction MOD 2C 42.2 % LV Cardiac Index MOD 2C 1386.9 cm/minm LV Diastolic Volume 4C AL 115.0 cm 85 - 139 / 69 - 109 cm LV Systolic Volume 4C AL 55.5 cm LV Ejection Fraction 4C AL 51.8 % LV Stroke Volume 4C AL 59.5 cm LV Cardiac Index 4C AL 2172.4 cm/minm LV Ejection Fraction 2C AL 44.8 % LV Cardiac Index 2C AL 1507.7 cm/minm Ascending Aorta Diameter 3.7 cm DOPPLER AV Peak Velocity 144.0 cm/s AV Peak Gradient 8.3 mmHg LVOT Peak Velocity 95.8 cm/s LVOT Peak Gradient 3.7 mmHg AV Area Cont Eq pk 2.8 cm Mitral E Point Velocity 96.7 cm/s MV Deceleration Time 187.0 ms
[2017-12-06] MEDS ORDERED: AUGMENTIN 875-1 EACH PO (09:47)
--- NOTE | 2017-12-06 09:48 | Discharge Summary ---
Visit Information Visit Dates Admission Date: 12/01/17 Discharge Date: 12/09/17 Hospital Course Course Attending Physician: Mariposa Dosih MD Primary Care Physician: Unknown Hospital Course: 61 YO M smoker with PMH of HTN, HLD, COPD not on home o2, CHF and left leg bypass on aug 2017 [facility] with chief complain of shortness of breath for 1 day with left leg swelling and redness for last couple of weeks. ED course: Vitals: Temperature 102.7, pulse 84, respiratory rate 18, blood pressure 124/74, oxygen saturation 97% on room air. Labs: WBC count 15.0, hemoglobin 13.3, hematocrit 39.9, platelet count 181, sodium 135, potassium 3.6, BUN 19, creatinine 1.0, lactic acid 2.4, glucose 134, BUNs/creatinine ratio 19.0, AST 70, ALT 19, troponin 0.01, proBNP 4670 Blood cultures were obtained in ED Patient received one dose of Unasyn and 1 bolus of normal saline. Left leg cellulitis: Patient was admitted for left leg cellulitis with wound on medial side of left knee. Patient was treated with IV Unasyn with elevation of the neck to decrease the swelling. Wound consult was obtained and recommendations were followed. Patient's previous wound VAC was removed and daily dressing was done after cleaning with Dakin solution. Vascular surgery consult was obtained and arterial Doppler study was done. Patient blood cultures remained negative. He remained afebrile WBC count was remained within normal limit. Later on his leg swelling and redness decreased. Wound VAC was placed again. Patient was instructed to follow vascular surgery at [facility] after the discharge. A.fib with RVR: Patient was found to have new onset of A. fib with rapid ventricular response. Cardiology consult was obtained and recommendations were followed. Patient was treated with metoprolol to control the rate. Later on patient was also given Cardizem to control his heart rate. Patient was given anticoagulation with Eliquis 5 mg twice a day considering his risk of stroke in the setting of A. fib. Later on patient's heart rate remained under control. Echocardiogram was done that showed ejection fraction 50-55%. 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 History of hypertension and hyperlipidemia: Patient was on metoprolol and Cardizem. He was not on any medication for hyperlipidemia. History of COPD: TRC nebulizations were continued when necessary. His home medications were continued. Smoking cessation: Nicotine patch was given. Patient was counseled to quit smoking. DVT prophylaxis: Mechanical and subcutaneous heparin CODE STATUS: DNR/DNI Allergies: Coded Allergies: No Known Allergies (12/01/17) Pertinent Lab Results: Doppler study on 12/01/17: IMPRESSION: No evidence of DVT in the left lower extremity. Chest x-ray on 12/01/2017: IMPRESSION: Mild prominence of the background interstitium which could reflect interstitial edema. No dense consolidation. Arterial Doppler study on 12/03/2017: IMPRESSION: 1. Patent left lower extremity bypass graft. Mildly elevated velocities within the proximal portion of the graft and at the distal anastomosis potentially represent regions of stenosis. 2. Monophasic waveforms of the left common femoral artery suggests inflow disease. 3. No color flow is noted within the [place] popliteal artery. 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 Further evaluation can be obtained with left lower extremity CTA if clinically indicated. Echocardiogram on 12/05/17: CONCLUSIONS Technically difficult study. Left ventricular cavity size normal. Left ventricular wall thickness mildly increased. Borderline normal left ventricular ejection fraction estimated at 50-55%. Mild right atrial dilatation. Mild left atrial dilatation. Can note exclude bicuspid aortic valve. Mild aortic regurgitation. Aorta at the level of the sinuses of valsalva (root) dilated at 5.5 cm. WBC count 12.7, hemoglobin 13.0, hematocrit 38.5, platelet count 365, sodium 143 , potassium 4.5, BUN 19, creatinine 0.8 Disposition Summary Disposition Principal Diagnosis: Left leg cellulitis A. fib with rapid ventricular response Additional Diagnosis: H/O of hypertension and hyperlipidemia History of COPD Discharge Disposition: home health services Discharge Instructions General Discharge Information Code Status: Do Not Resucitate/Intubat Patient's Diet: Heart healthy diet Patient's Activity: Self limited Follow-Up Instructions/Appts: Follow up with your pcp in one week. Follow up with your cardiologis in one week. Follow up with vascular surgery at [facility] in one week. Follow-up with cardiothoracic surgery at [facility] for dilated aortic root. Medications at Discharge Discharge Medications: Stop taking the following medications: Metoprolol Succ XL (Toprol Xl) 50 MG TAB ORAL DAILY Continue taking these medications: Acetaminophen (Tylenol) 325 MG TABLET 2 Tablet ORAL Every night Comments: NOT GIVEN Aspirin (Aspirin*) 81 MG TAB.CHEW 1 Tablet ORAL DAILY Comments: Last Taken:12/09/17 Time:075 Atorvastatin Calcium (Atorvastatin Calcium) 10 MG TABLET 1 Tablet ORAL 5 PM Comments: Last Taken:12/09/17 Time:190 Citalopram Hydrobromide (Celexa) 40 MG TABLET 1 Tablet ORAL DAILY Comments: Last Taken:12/09/17 Time:075 Clonazepam (Clonazepam) 0.5 MG TABLET 1 Tablet ORAL DAILY Comments: Last Taken:12/09/17 Time:075 Risperidone (Risperdal) 2 MG TABLET 1 Tablet ORAL Every night Comments: Last Taken:12/08/17 Time:2158 Tamsulosin HCl (Flomax) 0.4 MG CAP.ER.24H 1 Capsule ORAL DAILY Comments: Last Taken:12/09/17 Time:750 Trazodone HCl (Trazodone HCl) 100 MG TABLET 1 Tablet ORAL Every night Comments: Last Taken:12/08/17 Time:2157 Start taking the following new medications: Diltiazem HCl (Diltiazem 24HR ER) 120 MG CAP.ER.24H 1 Capsule ORAL DAILY Qty = 30 No Refills Instructions: .. Comments: Last Taken:12/09/17 Time:0620 Metoprolol Succ XL (Toprol XL) 100 MG TAB.ER.24H 2 Tablet ORAL DAILY Qty = 30 No Refills Instructions: .. Comments: Last Taken:12/09/17 Time:1150 Apixaban (Eliquis) 5 MG TABLET 1 Tablet ORAL TWICE DAILY Qty = 30 No Refills Instructions: .. Comments: Last Taken:12/09/17 Time:0750 Amoxicillin/Potassium Clav (Augmentin 875-125 Tablet) 875 MG-125 MG TABLET 1 Tablet ORAL TWICE DAILY Qty = 12 No Refills Instructions: .. Comments: NOT GIVEN Copies To: Amarjit PECK,Tani
--- NOTE | 2017-12-06 13:27 | PN- Cardiology ---
Subjective Subjective: Patient is feeling well today. He has converted back to sinus rhythm. Objective Vital Signs and I&Os Vital Signs Date Time Temp Pulse Resp B/P B/P Pulse O2 O2 Flow FiO2 Mean Ox Delivery Rate 12/06 1209 114/70 12/06 0846 120/62 12/06 0845 120/62 12/06 0602 98.2 76 20 110/80 95 Room Air 12/06 0523 78 110/80 12/05 2200 98.3 85 16 102/64 96 Room Air 12/05 2155 85 102/64 12/05 1544 98.0 95 20 130/96 97 Intake & Output 12/06 1600 12/06 0800 12/06 0000 12/05 1600 12/05 0800 12/05 0000 Intake Total 200 500 360 120 Output Total 700 400 400 Balance 200 -200 -40 -280 Intake, IV 200 100 240 Intake, Oral 400 120 120 Output, Urine 700 400 400 Patient 201 lb 190 lb Weight Weight Chair scale Standing Scale Measurement Method Physical Exam: General: no apparent distress. Alert. Eyes: No obvious scleral icterus. HEENT: No jugular venous distention or abnormal jugular venous pulsations. Cardiovascular: Normal intensity S1/S2. Regular Respiratory: No rales or rhonchi Abdomen: Soft, nontender with no guarding or rebound tenderness. Musculoskeletal: Decreased pulses; left lower extremity edema with erythema and surgical scar Skin: Warm Neurologic: No gross focal deficits noted. Current Medications: Current Medications Sig/Rebel Start time Last Medication Dose Route Stop Time Status Admin Acetaminophen 500 MG Q6P PRN 12/03 1430 AC 12/03 PO 1425 Ampicillin Sodium/ 3,000 MG Q6H 12/03 0030 AC 12/06 Sulbactam Sodium IV 1209 Sodium Chloride 100 ML Apixaban 5 MG BID 12/04 1524 AC 12/06 PO 0844 Aspirin 81 MG DAILY 12/02 1000 AC 12/06 PO 0844 Atorvastatin Calcium 10 MG 1700 12/02 1700 AC 12/05 PO 1719 Bisacodyl 5 MG DAILY 12/05 0940 AC 12/06 PO 0844 Citalopram 40 MG DAILY 12/02 1000 AC 12/06 Hydrobromide PO 0844 Clonazepam 0.5 MG DAILY 12/02 1000 AC 12/06 PO 12/09 0959 0843 Diltiazem HCl 30 MG Q8 04/12 1400 AC 12/06 PO 1209 Diltiazem HCl 30 MG Q6 12/05 1324 DC PO Heparin Sodium 5,000 UNIT Q8 12/01 2200 DC 12/05 (Porcine) SC 1331 Metoprolol Succinate 200 MG DAILY 12/06 0900 AC 12/06 PO 0846 Metoprolol Succinate 75 MG DAILY 12/03 1000 DC 12/05 PO 0808 Nicotine 14 MG DAILY 12/02 1157 AC 12/06 TOP 0843 Polyethylene Glycol 17 GM DAILY 12/05 0940 AC 12/06 PO 0843 Risperidone 2 MG AT BEDTIME 12/01 2200 AC 12/05 PO 2149 Senna/Docusate Sodium 2 TAB DAILY PRN 12/01 1845 AC PO Sodium Hypochlorite 1 DYLAN BID 12/03 1147 AC 12/06 TOP 0846 Tamsulosin HCl 0.4 MG DAILY 12/01 1839 AC 12/06 PO 0845 Trazodone HCl 100 MG AT BEDTIME 12/01 2200 AC 12/05 PO 2148 Results Last 48 Hrs of Labs/Mics: Laboratory Tests 12/05/17 0810: Anion Gap 9, Estimated GFR > 60, BUN/Creatinine Ratio 21.7 Recent Imaging Studies: Telemetry tracings were personally reviewed and showed atrial fibrillation with conversion to sinus rhythm Echocardiogram Technically difficult study. Left ventricular cavity size normal. Left ventricular wall thickness mildly increased. Borderline normal left ventricular ejection fraction estimated at 50-55%. Mild right atrial dilatation. Mild left atrial dilatation. Can note exclude bicuspid aortic valve. Mild aortic regurgitation. Aorta at the level of the sinuses of valsalva (root) dilated at 5.5 cm. Mika Gilbert M.D. (Electronically Signed) Final Date: 06 December 2017 09:31 Assessment/Plan Assessment/Plan 1. Atrial fibrillation with rapid ventricular response rate; ?New onset with spontaneous conversion to sinus rhythm 2. COPD 3. Cellulitis 4. Nicotine dependence 5. History of hypertension/hyperlipidemia 6. Peripheral vascular disease with prior lower extremity bypass due to aneurysm 7. Aortic root aneurysm which is known based on outpatient records Echocardiogram as above. The patient is doing well and has converted back to sinus rhythm. Would change the Cardizem to extended release 120 mg daily and continue the beta-bess. Continue the Eliquis. Review of his outpatient medical records shows that he does have a known aortic root aneurysm which should be closely followed by his outpatient utility worker driver after discharge. Please call with any additional questions or concerns. Mehul Gilbert MD [facility] Continue telemetry? No
[2017-12-06] MEDS ORDERED: DILTIAZEM 24HR120 MG PO (14:02)
[2017-12-06 14:56] VITALS: BP 100/60
[2017-12-06 22:58] VITALS: BP 102/68
--- NOTE | 2017-12-07 07:25 | PN- Housestaff ---
[facility] 12/07/17 0725: Subjective Follow-up For: Left leg cellulitis with open wound on the medial side of the knee. (IMPROVING) Fatmata with RVR Tele-Events Since Last Visit: Sinus rhythm with heart rate 6268 with first-degree block Subjective: No overnight events. Patient remained afebrileand examined this morning. He denied any chest pain, palpitation, short of breath, nausea, vomiting, fever, chills and dysuria. Review of Systems Constitutional: Denies: chills, fever. EENTM: Reports: no symptoms. Cardiovascular: Denies: chest pain, palpitations. Respiratory: Denies: cough, short of breath, sputum production. Gastrointestinal: Denies: abdominal pain, diarrhea, nausea. Genitourinary: Reports: no symptoms. Musculoskeletal: Reports: no symptoms. Neurological/Psychological: Reports: no symptoms. Objective Last 24 Hrs of Vital Signs/I&O Vital Signs Date Time Temp Pulse Resp B/P B/P Pulse O2 O2 Flow FiO2 Mean Ox Delivery Rate 12/06 2258 98.2 68 18 102/68 98 Room Air 12/06 2238 69 102/68 12/06 1456 97.9 80 20 100/60 96 Room Air 12/06 1209 114/70 12/06 0846 120/62 12/06 0845 120/62 Intake & Output 12/07 0800 12/07 0000 12/06 1600 Intake Total 200 500 Output Total 500 1100 600 Balance -300 -1100 -100 Intake, IV 200 100 Intake, Oral 400 Number 2 Bowel Movements Output, Urine 500 1100 600 Patient 199 lb Weight Weight Chair scale Measurement Method Physical Exam General Appearance: Alert, Oriented X3, Cooperative Skin: No Rashes Skin Temp/Moisture Exam: Warm/Dry Sepsis Skin Exam (color): Normal for Ethnicity HEENT: Atraumatic, PERRLA, EOMI Neck: Supple Cardiovascular: Normal S1, Normal S2 Lungs: Clear to Auscultation Abdomen: Soft, No Tenderness Neurological: Normal Speech, Strength at 5/5 X4 Ext, Normal Tone Extremities: LEFT LEG SWELLING IMPROVING. RENESS ALSO IMPROVING. Assessment/Plan Assessment: 61 YO M smoker with PMH of HTN, HLD, COPD not on home o2, CHF and left leg bypass on aug 2017 [facility] with chief complain of shortness of breath for 1 day with left leg swelling and redness for last couple of weeks. We will keep the patient on telemetry floor following problems; Left leg cellulitis: -Continue IV Unasyn day 6 -Blood cultures are negative so far -Leg elevation -patient has wound on medial side of left knee. -Daily dressing and cleaning of the wound with Dakin solution -Patient will follow the vascular surgery at [place]. -Wound vac was applied yesterday. A.fib with RVR: -Eliquis 5mg bid -Rate control with cardizem 30mg q8 and metoprolol 200mg -trops and EKGs are negative. -Echo ejection fraction 50-55%. Aortic root size is 5.5cm History of hypertension and hyperlipidemia: -Continue home medications History of COPD: -Continue home medication -TRC nebulization as needed Smoking cessation: -Nicotine patch DVT prophylaxis: -Mechanical and subcutaneous heparin CODE STATUS: DNR/DNI Problem List: 1. Cellulitis 2. A-fib Pain Ratin Pain Location: NONE Pain Goal: Remain pain free Pain Plan: PAIN PATHWAY Tomorrow's Labs & Rationales: NONE Mariposa Doshi MD 12/07/17 2237: Attending MD Review Statement Attending Statement Attending MD Statement: examined this patient, discuss w/resident/PA/EVENT SALES ASSISTANT, agreed w/resident/PA/EVENT SALES ASSISTANT, reviewed EMR data (avail) Attending Assessment/Plan: Doing well, no complaints, legs slowly improving. Will continue current management.
[2017-12-07 07:34] VITALS: BP 110/60
[2017-12-07 14:00] VITALS: BP 104/66
[2017-12-07 23:00] VITALS: BP 98/66
[2017-12-08 06:00] VITALS: BP 82/50
[2017-12-08 08:00] VITALS: BP 98/66
--- NOTE | 2017-12-08 08:30 | PN- Housestaff ---
[facility]ans[facility] PECK,Tani 12/08/17 0830: Subjective Follow-up For: Left leg cellulitis with open wound on the medial side of the knee. (IMPROVING) Tele-Events Since Last Visit: SR HR 50s-70s Subjective: Patient was seen and examined at bedside. He is resting comfortably. He had no acute events overnight. This morning he was borderline hypotensive although asymptomatic. He denied any lightheadedness, dizziness, nausea, vomiting, fever , chills, chest pain, palpitations. He also denies any pain in his left leg from cellulitis Review of Systems Constitutional: Denies: chills, fever. EENTM: Reports: no symptoms. Cardiovascular: Reports: no symptoms. Respiratory: Reports: no symptoms. Gastrointestinal: Reports: no symptoms. Genitourinary: Reports: no symptoms. Musculoskeletal: Reports: no symptoms. Skin: Reports: rash. Objective Last 24 Hrs of Vital Signs/I&O Vital Signs Date Time Temp Pulse Resp B/P B/P Pulse O2 O2 Flow FiO2 Mean Ox Delivery Rate 12/08 0800 98/66 12/08 0600 97.6 59 20 82/50 94 12/07 2300 97.3 68 20 98/66 93 12/07 1400 98.1 60 20 104/66 97 Room Air 12/07 0933 116/70 12/07 0932 116/70 Intake & Output 12/08 1600 12/08 0800 12/08 0000 Intake Total 120 Output Total 1500 800 Balance -1500 -680 Intake, Oral 120 Output, Urine 1500 800 Patient 200 lb Weight Physical Exam General Appearance: Alert, Oriented X3, Cooperative, No Acute Distress Skin Temp/Moisture Exam: Warm/Dry Sepsis Skin Exam (color): Normal for Ethnicity Cardiovascular: Regular Rate, Normal S1, Normal S2 Lungs: Clear to Auscultation, Normal Air Movement Abdomen: Normal Bowel Sounds, Soft, No Tenderness Neurological: Normal Speech, Normal Tone, Sensation Intact Extremities: Wound vac in place on L medial thigh, mild blanchable erythema of the L foot Current Medications: Current Medications Sig/Rebel Start time Last Medication Dose Route Stop Time Status Admin Acetaminophen 500 MG Q6P PRN 12/03 1430 AC 12/03 PO 1425 Ampicillin Sodium/ 3,000 MG Q6H 12/03 0030 AC 12/08 Sulbactam Sodium IV 0542 Sodium Chloride 100 ML Apixaban 5 MG BID 12/04 1524 AC 12/07 PO 2053 Aspirin 81 MG DAILY 12/02 1000 AC 12/07 PO 0934 Atorvastatin Calcium 10 MG 1700 12/02 1700 AC 12/07 PO 1618 Bisacodyl 10 MG ONCE PRN 12/06 1715 AC 12/06 NM 2242 Bisacodyl 5 MG DAILY 12/05 0940 AC 12/07 PO 0934 Citalopram 40 MG DAILY 12/02 1000 AC 12/07 Hydrobromide PO 0933 Clonazepam 0.5 MG DAILY 12/02 1000 AC 12/07 PO 12/09 0959 0932 Diltiazem HCl 120 MG DAILY 12/07 0900 AC 12/07 PO 0932 Metoprolol Succinate 200 MG DAILY 12/06 0900 AC 12/07 PO 0933 Nicotine 14 MG DAILY 12/02 1157 AC 12/07 TOP 0934 Polyethylene Glycol 17 GM DAILY 12/05 0940 AC 12/07 PO 1023 Risperidone 2 MG AT BEDTIME 12/01 2200 AC 12/07 PO 2053 Senna 187 MG AT BEDTIME 12/06 2100 AC 12/07 PO 2053 Senna/Docusate Sodium 2 TAB DAILY PRN 12/01 1845 AC 12/06 PO 1750 Tamsulosin HCl 0.4 MG DAILY 12/01 1839 AC 12/07 PO 931 Trazodone HCl 100 MG AT BEDTIME 12/01 2200 AC 12/07 PO 2053 Assessment/Plan Assessment: 61 YO M smoker with PMH of HTN, HLD, COPD not on home o2, CHF and left leg bypass on aug 2017 [facility] with chief complain of shortness of breath for 1 day with left leg swelling and redness for last couple of weeks. We will keep the patient on telemetry floor following problems; Left leg cellulitis: -Continue IV Unasyn day 7 -Blood cultures remain negative -continue Leg elevation -Daily dressing and cleaning of the wound with Dakin solution -Patient will follow the vascular surgery at [place]. -Wound vac in place Paroxysmal A.fib, now in normal sinus rhythm -Eliquis 5mg bid -Due to borderline hypotension and heart rate in the 50s, patient was given only 100 mg of metoprolol today and Cardizem was switched back to 30 mg every 8 to be able to better monitor heart rate and BP. If stable overnight may resume 200 mg metoprolol XL and Cardizem ER 120 mg -trops and EKGs are negative. -Echo ejection fraction 50-55%. Aortic root size is 5.5cm History of hypertension and hyperlipidemia: Borderline hypotension with heart rate in the 50s today, adjusting medications as above History of COPD: -Continue home medication -TRC nebulization as needed Smoking cessation: -Nicotine patch DVT prophylaxis: -Mechanical and subcutaneous heparin CODE STATUS: DNR/DNI Problem List: 1. Cellulitis Pain Ratin Pain Location: none Pain Goal: Remain pain free Pain Plan: pain pathway Tomorrow's Labs & Rationales: none Mariposa Doshi MD 12/08/17 1458: Attending MD Review Statement Attending Statement Attending MD Statement: examined this patient, discuss w/resident/PA/BRAKE REPAIR SUPERVISOR, agreed w/resident/PA/BRAKE REPAIR SUPERVISOR, reviewed EMR data (avail) Attending Assessment/Plan: 61M PMH CHF, HTN, HLD, COPD, LLE bypass Aug 2017 with wound dehisicence and chronic wound requiring wound vac for several months admitted with cellulitis of the LLE with erythema, warmth, swelling, and pain, also found to be in multifocal atrial tachycardia. Afebrile overnight. Erythema improving. He does not complain of pain, and remains afebrile. His echocardiogram showed no valvular abnormalities, normal EF, and 5.5cm aortic root aneurysm. Per cardiology review of [place] records this is chronic and being worked up at the [place], with a CTA chest done in August showing that it is unchanged. 1. LLE cellulitis 2. Multifocal atrial tachycardia 3. PAD 4. Aortic root aneurysm Plan - Continue telemetry - Continue Unasyn - Follow cultures - Wound and cardiology consults - Continue home medications - DVT PPx - Wound vac placement - Outpatient cardiothoracic surgery follow up with the [place]
[2017-12-08 12:09] VITALS: BP 110/70
[2017-12-08 14:00] VITALS: BP 104/64
[2017-12-08 23:19] VITALS: BP 86/52
[2017-12-09 06:00] VITALS: BP 100/70
--- NOTE | 2017-12-09 07:34 | PN- Housestaff ---
[facility] 12/09/17 0734: Subjective Follow-up For: Left leg cellulitis(improved) Jonnathan goncalves with rapid ventricular response Tele-Events Since Last Visit: Patient remained in sinus rhythm with heart rate 5761 Subjective: No overnight events. Patient remained afebrile. Seen and examined this morning. He denied any chest pain, short of breath, nausea, vomiting, abdominal pain, chills, fever and dysuria. His left leg swelling and redness has improved. Review of Systems Constitutional: Denies: chills, fever. EENTM: Reports: no symptoms. Cardiovascular: Denies: chest pain, palpitations. Respiratory: Denies: cough, short of breath, sputum production. Gastrointestinal: Reports: no symptoms. Genitourinary: Reports: no symptoms. Neurological/Psychological: Reports: no symptoms. Objective Last 24 Hrs of Vital Signs/I&O Vital Signs Date Time Temp Pulse Resp B/P B/P Pulse O2 O2 Flow FiO2 Mean Ox Delivery Rate 12/09 0752 65 110/68 12/09 0620 58 100/70 12/09 0600 98.0 60 16 100/70 95 / 2319 98.0 62 16 86/52 97 Room Air 12/08 2158 66 86/52 12/08 1400 97.9 69 20 104/64 98 Room Air 12/08 1303 68 110/70 12/08 1302 68 110/70 12/08 1209 59 110/70 Intake & Output 12/09 1600 12/09 0800 12/09 0000 Intake Total 240 Output Total Balance 240 Intake, IV 120 Intake, Oral 120 Patient 197 lb Weight Weight Chair scale Measurement Method Physical Exam General Appearance: Alert, Oriented X3, Cooperative Skin Temp/Moisture Exam: Warm/Dry Sepsis Skin Exam (color): Normal for Ethnicity HEENT: Atraumatic, PERRLA, EOMI Neck: Supple Cardiovascular: Normal S1, Normal S2 Lungs: Clear to Auscultation Abdomen: Soft, No Tenderness Neurological: Normal Speech, Strength at 5/5 X4 Ext, Normal Tone Extremities: No Edema Assessment/Plan Assessment: 61 YO M smoker with PMH of HTN, HLD, COPD not on home o2, CHF and left leg bypass on aug 2017 came [facility] ED [facility] the homeless group home with chief complain of shortness of breath for 1 day with left leg swelling and redness for last couple of weeks. We will keep the patient on telemetry floor following problems; Left leg cellulitis:(improving) -Continue IV Unasyn day 7 -Blood cultures remain negative -continue Leg elevation -Daily dressing and cleaning of the wound with Dakin solution -Patient will follow the vascular surgery at [place]. -Wound vac in place Paroxysmal A.fib: -Converted to sinus rhythm -Eliquis 5mg bid -Due to borderline hypotension and heart rate in the 50s, patient was given only 100 mg of metoprolol today and Cardizem was switched back to 30 mg every 8 to be able to better monitor heart rate and BP. -trops and EKGs are negative. -Echo ejection fraction 50-55%. Aortic root size is 5.5cm History of hypertension and hyperlipidemia: Borderline hypotension with heart rate in the 50s today, adjusting medications as above History of COPD: -Continue home medication -TRC nebulization as needed Smoking cessation: -Nicotine patch DVT prophylaxis: -Mechanical and subcutaneous heparin CODE STATUS: DNR/DNI Problem List: 1. Cellulitis 2. A-fib Pain Ratin Pain Location: none Pain Goal: Remain pain free Pain Plan: pain pathway Tomorrow's Labs & Rationales: none Mariposa Doshi MD 12/09/17 1145: Attending MD Review Statement Attending Statement Attending MD Statement: examined this patient, discuss w/resident/PA/SOFTWARE BUILD ENGINEER, agreed w/resident/PA/SOFTWARE BUILD ENGINEER, reviewed EMR data (avail) Attending Assessment/Plan: 61M PMH CHF, HTN, HLD, COPD, LLE bypass Aug 2017 with wound dehisicence and chronic wound requiring wound vac for several months admitted with cellulitis of the LLE with erythema, warmth, swelling, and pain, also found to be in multifocal atrial tachycardia. Afebrile overnight. Erythema improving. He does not complain of pain, and remains afebrile. His echocardiogram showed no valvular abnormalities, normal EF, and 5.5cm aortic root aneurysm. Per cardiology review of [place] records this is chronic and being worked up at the [place], with a CTA chest done in August showing that it is unchanged. 1. LLE cellulitis 2. Multifocal atrial tachycardia 3. PAD 4. Aortic root aneurysm Plan - Stable for discharge - Augmentin for 7 more days - Outpatient cardiology and wound care - Continue home medications - Wound vac on discharge - Outpatient cardiothoracic surgery follow up with the [place]
[2017-12-09] MEDS ORDERED: AUGMENTIN 875-1 EACH PO ×3 (07:35→11:07)
[2017-12-09] MEDS ORDERED: DILTIAZEM 24HR120 MG PO ×2 (07:44→11:07)
[2017-12-09] MEDS ORDERED: TOPROL XL100 M1 PO ×2 (07:44→11:07)
[2017-12-09] MEDS ORDERED: ELIQUIS5 M1 PO ×2 (07:44→11:07)
[2017-12-09 08:02] LABS: ABSOLUTE BASOPHIL COUNT 0.1 /CUMM (0.0-0.2); ABSOLUTE EOSINOPHIL COUNT 0.3 /CUMM (0.0-0.7); ABSOLUTE MONOCYTE COUNT 1.2 /CUMM (0.10-0.60); MEAN CORPUSCULAR HGB 30.5 PG (27.0-31.0); MEAN CORPUSCULAR HGB CONC 33.7 G/DL (33.0-37.0); RBC DISTRIBUTION WIDTH 14.3 % (11.5-14.5)
[2017-12-09 08:16] LABS: ABSOLUTE GRANULOCYTE CT 9.1 /CUMM (1.4-6.5); BASOPHIL % 0.6 % (0.0-2.0); EOSINOPHIL % 2.6 % (0-5); GRANULOCYTE % 71.9 % (42.2-75.2); HEMATOCRIT 38.5 % (42-52); MEAN CORPUSCULAR VOLUME 90.5 FL (80.0-94.0); MEAN PLATELET VOLUME 7.8 FL (7.4-10.4); RED BLOOD CELL CT 4.25 /CUMM (4.70-6.10); WHITE BLOOD CELL COUNT 12.7 /CUMM (4.8-10.8)
[2017-12-09 08:19] LABS: PLATELET COUNT 365 /CUMM (130-400)
[2017-12-09 14:23] VITALS: BP 110/70
[2017-12-09 21:42] VITALS: BP 108/60
[2017-12-10 06:59] VITALS: BP 104/70
--- NOTE | 2017-12-10 07:18 | PN- Housestaff ---
See Addendum Subjective Follow-up For: Left leg cellulitis(resolved) A. ivanna with rapid ventricular response Tele-Events Since Last Visit: Patient remained in sinus rhythm with heart rate 49-75 Subjective: No overnight events. Patient remained afebrile with a seen and examined this morning. He denied any chest pain, short of breath, palpitation, nausea, vomiting, chest and abdominal pain. Patient was discharged yesterday but couldn 't because of placement issues. Review of Systems Constitutional: Denies: chills, fever. EENTM: Reports: no symptoms. Cardiovascular: Denies: chest pain, palpitations. Respiratory: Denies: cough, short of breath, sputum production. Gastrointestinal: Denies: abdominal pain, constipation, diarrhea, nausea. Genitourinary: Reports: no symptoms. Musculoskeletal: Reports: no symptoms. Neurological/Psychological: Reports: no symptoms. Objective Last 24 Hrs of Vital Signs/I&O Vital Signs Date Time Temp Pulse Resp B/P B/P Pulse O2 O2 Flow FiO2 Mean Ox Delivery Rate 12/10 0751 108/60 12/10 0659 98.3 58 20 104/70 98 Room Air 12/10 0616 49 104/70 12/09 2142 97.7 69 18 108/60 96 Room Air 12/09 2059 68 108/60 12/09 1423 97.4 67 18 110/70 97 Room Air Intake & Output 12/10 0800 12/10 0000 12/09 1600 Intake Total 260 120 700 Output Total 500 1450 1000 Balance -240 -1330 -300 Intake, IV 140 250 Intake, Oral 120 120 450 Output, Urine 500 1450 1000 Patient 197 lb Weight Physical Exam General Appearance: Alert, Oriented X3, Cooperative Skin Temp/Moisture Exam: Warm/Dry Sepsis Skin Exam (color): Normal for Ethnicity HEENT: Atraumatic, PERRLA, EOMI Neck: Supple Cardiovascular: Normal S1, Normal S2 Lungs: Clear to Auscultation Abdomen: Soft, No Tenderness Neurological: Normal Speech, Strength at 5/5 X4 Ext, Normal Tone Extremities: No Edema Assessment/Plan Assessment: 61 YO M smoker with PMH of HTN, HLD, COPD not on home o2, CHF and left leg bypass on aug 2017 [facility] with chief complain of shortness of breath for 1 day with left leg swelling and redness for last couple of weeks. We will keep the patient on telemetry floor following problems; Left leg cellulitis:(resolved) -Continue IV Unasyn day 8 -Blood cultures remain negative -continue Leg elevation -Daily dressing and cleaning of the wound with Dakin solution -Patient will follow the vascular surgery at [place]. -Wound vac was removed and patient was instructed to be to go back after the discharge. Paroxysmal A.fib: -In sinus rhythm now. -Eliquis 5mg bid -trops and EKGs are negative. -Echo ejection fraction 50-55%. Aortic root size is 5.5cm History of hypertension and hyperlipidemia: -Continue home medications and continue statins. History of COPD: -Continue home medication -TRC nebulization as needed Smoking cessation: -Nicotine patch DVT prophylaxis: -Mechanical and subcutaneous heparin CODE STATUS: DNR/DNI Problem List: 1. A-fib 2. Cellulitis Pain Ratin Pain Location: none Pain Goal: Remain pain free Pain Plan: pain pathway Tomorrow's Labs & Rationales: none
[2017-12-10 07:51] VITALS: BP 108/60
== END 2017-12-10 11:17 | disposition home health service (06) | DRG 603 ==
LOC: DELPENDDIS → ERH 14:45 → 1NO 16:30 → ERHI 16:30 → ENRESERV 17:16 → CANRESERV 17:16 → EDBEDREQ 17:27 → ERHI 12-02 08:48 → ENRESERV 12-02 12:58 → EDBEDREQ 12-02 13:01 → ENTRNSPT 12-02 14:53 → EDTRNSPTSTS 12-02 15:05 → EDTRNSPT 12-02 15:05 → CMPTRNSPT 12-02 15:21 → 1NO 12-02 16:34 → ENPENDDIS 12-09 11:14 → ENTRNSPT 12-10 11:02 → EDTRNSPTSTS 12-10 11:12 → EDTRNSPT 12-10 11:12 → 1NO 12-10 11:17 → CMPTRNSPT 12-10 11:21
PROVIDERS: Internal Medicine; Internal Medicine Hematology & Oncology; Physician Assistant Medical; Student in an Organized Health Care Education/Training Program
DX: L03.116 Cellulitis of left lower limb (principal); I48.0 Paroxysmal atrial fibrillation; Q25.43 Congenital aneurysm of aorta; Z95.1 Presence of aortocoronary bypass graft; F17.210 Nicotine dependence, cigarettes, uncomplicated; J44.9 Chronic obstructive pulmonary disease, unspecified; R00.0 Tachycardia, unspecified; I73.9 Peripheral vascular disease, unspecified; E78.5 Hyperlipidemia, unspecified; Z79.82 Long term (current) use of aspirin; I71.4 Abdominal aortic aneurysm, without rupture; Z66 Do not resuscitate; Z59.0 Homelessness
CPT/HCPCS: 1NP; ERO; 36592; 71045; 80307; 82436; 87040; 87070; 87449; 87450; 93005; 93010; 93306; 96374; 96375; G0480; J0131; J1644; J3370; J3490; J7040; J7508